=== PATIENT | female | born 1990 | race Caucasian/White ===

== ENCOUNTER 2017-06-22 15:56 | Emergency (ER) | payer MEDICAID ==
[~2017-06-22] VITALS: Ht 165.1 cm; Wt 75.3 kg
--- NOTE | 2017-06-22 16:38 | Emergency Room Report ---
History of Present Illness Time Seen by [id number] Presenting Problem in Triage Pt arrived:Walked Presenting Problem:STATES THAT SHE WAS ON A NEW MED FOR HEADACHES AND IT MADE HER NAUSEOUS. PATIENT WAS GIVEN ZOFRAN AND WAS INEFFECTIVE. STATES THAT SHE IS HAVING UMBILICAL AREA PAIN AND IS UNABLE TO EAT. Onset of symptoms date/time:/ or onset unknown for:MEDICAL HX UNKNOWN Treatment Prior to Arrival: MEDICATION PERINATOLOGY PHYSICIAN Provided by:PHYSICIAN Sepsis Risk Assessment: Temp: 98.0 B/P: 131/72 MAP: 91 Pulse: 69 Resp: 18 Recent fever? N Clinical Suspician of Infection? N Mental Status: 1 - Regular (Normal Baseline) Sepsis Risk:Low Sepsis Risk Have you (or family members/close friends) recently traveled outside the [place]? N If Yes, where/when: Have you had exposure to infectious disease within the past month? N TB? Other? Specify: Comment The patient was recently started on Topamax for headaches. She then developed periumbilical discomfort and nausea and vomiting. She vomits after she eats anything. She feels hungry but feels that she cannot eat. She is having normal bowel movements. No fever. No urinary symptoms. She was called in [facility] by her primary care provider 2 days ago but it has not helped. They had offered her Phenergan, but she did not want to feel drowsy. [employer] had previously worked for her during . She called her primary care provider again today but they could not see her until Sunday and she says she cannot wait because she is leaving on vacation Sunday. ALLERGIES Coded Allergies: Mushroom (From MUSHROOMS (FOOD/DRUG)) (06/22/17) Penicillins (06/22/17) mushroom (From MUSHROOMS (FOOD/DRUG)) (06/22/17) Home Medications Reported Medications Ondansetron Hydrochloride (Ondansetron 4MG U/D TABLET (NON-CHEMO USE)) 4 MG PO Q6HP PRN NAUSEA #20 History Medical History General CAD? No Angina: No ND: No Hypertension? No Hyperlipidemia? No CHF? No DVT? No PE? No COPD? No Asthma? No Anemia? No GERD? No Gastric ulcers? No GI Bleed? No Hernia? No Thyroid Problems? No Hypothyroidism? No CVA? No Seizures? No Diabetes? No Renal Insuffiency? No End Stage Renal Disease? No UTI? No Stones? No BPH? No GB Disease: No Nephritic Syndrome? No Asplenia? No Hepatitis? No Sickle Cell Disease? No Arthritis? No Migraines? No Cataracts? No Glaucoma? No MRSA? No HIV? No TB? No Anxiety? No Depression? No Cancer? No More? No Immunization Hx Ped.Immunizations UTD Yes DT/Tetanus Unknown Surgical Hx Previous Surgery?Y [id number] [employer] Hx LMP 1 Week Ago Social History Smoking Hx Smoker: Never Smoker Tobacco: No Are you/the child exposed to second-hand smoke: No Alcohol Alcohol: No Review of Systems All Other Systems Reviewed and Negative Constitutional denies fever Gastrointestinal abdominal pain, denies constipation, denies diarrhea, nausea, vomiting Genitourinary denies: dysuria, frequency. Physical Exam Vital Signs Vital Signs Date Time Temp Pulse Resp B/P Pulse O2 O2 Flow FiO2 Ox Delivery Rate 06/22 1603 98.0 69 18 131/72 100 General Appearance normal appearance, WD/WN Eye Exam - bilateral eye normal exam, bilateral eye PERRL, bilateral eye EOMI Ear, Nose, Throat hearing grossly normal, normal ENT inspection Neck normal inspection, non-tender, supple, full range of motion Respiratory Status Yes: trachea midline, chest symmetrical, non tender chest. No: respiratory distress. Lung Sounds bilateral: normal breath sounds, lungs clear. Cardiovascular normal exam, regular rate/rhythm, no peripheral edema, no gallop, no JVD, no murmur, no rub, normal peripheral pulses Peripheral Pulses Pulses normal Yes Gastrointestinal normal bowel sounds, soft, no organomegaly, tenderness ( periumbilical) Extremities non-tender, normal range of motion, normal inspection Neurologic alert, normal exam, oriented x 3 Mental status normal mood/affect Skin intact, normal color, warm/dry Medical Decision Making LABS/Meds/Orders Pt receiving controlled substance in ED? No Results/Orders Laboratory Tests 06/22/17 1715: Urine Color YELLOW, Urine Appearance TURBID, Urine pH 7.0, Ur Specific [place] 1.020, Urine Protein NEGATIVE, Urine Ketones NEGATIVE, Urine Blood 2+ H, Urine Nitrate NEGATIVE, Urine Bilirubin NEGATIVE, Urine Urobilinogen 0.2, Ur Leukocyte Esterase 2+ H, Urine RBC 3-5, Urine WBC 5-10, Ur Squamous Epith Cells 20-50, Urine Bacteria 4+, Urine Glucose NEGATIVE 06/22/17 1620: Amylase 40, Lipase 114 06/22/17 1620: Sodium 140, Potassium 4.0, Chloride 105, Carbon Dioxide 26, BUN 13, Creatinine 0.9, Estimated Creat Clear 110, Estimated GFR (MDRD) 74, Glucose 86, Calcium 8.7 , Total Bilirubin 0.2, AST 12 L, ALT 17, Alkaline Phosphatase 80, Total Protein 7.6, Albumin 4.0, Globulin 3.6 H, Albumin/Globulin Ratio 1.1, WBC 9.8, RBC 4.54 , Hgb 14.1, Hct 42.5, MCV 93.6, RDW 12.0, Plt Count 308, MPV 8.6, Gran % 58.1, Gran # 5.7, Lymphocytes % 27.8, Monocytes % 3.6, Eosinophils % 10.1, Basophils % 0.4, Lymphocytes # 2.7, Monocytes # 0.4, Eosinophils # 1.0 H, Basophils # 0.0, PUBS MCHC 33.1, MCH 31.0 Current Medication Orders Sig/Kelli Start time Last Medication Dose Route Stop Time Status Admin Famotidine 0 .STK-MED ONE 06/22 165 DC IV Famotidine 20 MG ONCE ONE 06/22 1645 DC 06/22 IV 06/22 164 1658 Sodium Chloride 10 ML PRN PRN 06/22 1630 AC IV 06/23 1627 Orders Procedure Date/time Status DIET-NOTHING BY MOUTH 06/[address] ABD & PELVIS W/O CONTRAST 06/22 1801 Active CULTURE, URINE 06/[address] ABD/PELVIS REQ 06/22 1646 Active LIPASE 06/22 1645 Complete AMYLASE 06/22 1645 Complete URINALYSIS/COMPLETE 06/22 1639 Complete URINE 06/22 1639 Complete IV SALINE LOCK 06/22 1627 Active CBC WITH AUTO DIFF 06/22 162 Complete CHEM 12 PROFILE 06/22 162 Complete XRAY/CT/US XRAY/CT/US CT abdomen, pelvis Comment CT scan interpreted by ad radiologist. Faxed report received and reviewed: No acute findings Progress - 1907: Discussed results with the patient. She is not having any urinary symptoms. She has a large number of epithelial cells in her urine, likely contamination. She does not want to be put on an antibiotic, wants to await culture results. She does not want Phenergan as it makes her too drowsy. She is agreeable to trying another nausea medication. Departure Departure Disposition DC Home or Self Care(routine) Clinical Impression Primary Impression: Abdominal pain Qualifiers: Abdominal location: periumbilical Qualified Code: R10.33 - Periumbilical pain Secondary Impressions: Nausea and vomiting Qualifiers: Vomiting type: unspecified Vomiting Intractability: non-intractable Qualified Code: R11.2 - Nausea with vomiting, unspecified Condition STABLE Referrals NOE HERNANDEZ (Family) Patient Instructions DI for Abdominal Pain-Adult, DI for Vomiting -- Adult Additional Instructions Additional instructions for ABDOMINAL PAIN: See your physician as soon as possible for further evaluation. Return immediately if worsening abdominal pain, vomiting, shortness of breath, fever, vomiting of blood or abdominal distention. Prescriptions Current Visit Scripts Famotidine (Pepcid) 40 MG PO DAILY #20 TAB Metoclopramide Hcl (Reglan) 5 MG PO TIDP PRN nausea #10 TAB ED Critical Care Critical Care No at 1918
[2017-06-22 16:39] LABS: HEMOGLOBIN 14.1 g/dL (12.2-16.2); LYMPH # 2.7 K/mm3 (0.7-4.5); LYMPH % 27.8 % (10-50.0)
[2017-06-22 17:57] LABS: URINE BILIRUBIN - DIPSTICK NEGATIVE (NEG); URINE BLOOD 2+ (NEG)
[2017-06-22 18:05] LABS: URINE SQUAMOUS CELLS 20-50 #/hpf (0-5)
[2017-06-22 19:28] VITALS: BP 128/70
--- NOTE | 2017-06-23 11:33 | RADIOLOGY REPORT PS360 ---
CT ABD PELVIS W/O CONTRAST COMPARISON: None HISTORY: Abdominal pain nausea and vomiting TECHNIQUE: Multiple axial scans obtained from the hemidiaphragms the pelvic floor and were performed without IV or oral contrast. Sagittal and coronal reformats were evaluated as well. FINDINGS: The lower lung braun are clear. The liver spleen stomach Eckerson gallbladder appear normal. The adrenal glands are normal. The kidneys are normal size and there are no calculi and is no obstructive uropathy. Small bowel appears normal. What appears be the appendix is normal caliber and there are no pericecal inflammatory changes. There is moderate stool in the cecum and ascending colon. The cecum is positioned somewhat low in the right upper pelvis a normal variation. The uterus is normal size and in the midline. Urinary bladder is decompressed. Is no free fluid in the pelvis. IMPRESSION: Essentially unremarkable study no acute abdominal or pelvic pathology identified, I agree with the [facility] report
--- OUTSIDE RECORDS SUMMARY | 2017-06-29 08:17 | External Medical Summary Rpt | CCD ---
Author Author , JUSTYN Organization JUSTYN Address Unknown Phone [email or web address] Care Team Providers Care Bolt Cutter Name Role Phone NAVARRO AMA, Unavailable Unavailable NAVARRO AMA NAVARRO, RASHAAD, Unavailable Unavailable NAVARRO, RASHAAD MOSLEY TEQUILA, MOSLEY TEQUILA Unavailable Unavailable MOSLEY TEQUILA, MOSLEY TEQUILA Unavailable Unavailable GRADY MOSLEY, Unavailable Unavailable GRADY MOSLEY JOHN R, Unavailable Unavailable KATIA STANFORD JEREL, DAVID JEREL Unavailable Unavailable BRIZENDINE, JEAN T, Unavailable Unavailable BRIZENDINE, JEAN T [facility], Unavailable Unavailable [facility] HUY QUINN, HUY QUINN Unavailable Unavailable HUY QUINN, HUY QUINN Unavailable [facility]available [facility] Unavailable Unavailable [facility], Unavailable Unavailable [facility] FALK BRA, FALK BRA Unavailable Unavailable DELA CRUZ ESTHER, DELA CRUZ ESTHER Unavailable Unavailable [facility] Unavailable Unavailable [facility], [facility] LOOFF ELIGIO, LOOFF ELIGIO Unavailable Unavailable LOOFF ELIGIO, LOOFF ELIGIO Unavailable Unavailable KATIA LYNNE LOOFF, Unavailable Unavailable [facility] Unavailable Unavailable LAB [facility], [facility] STEPHIE NELSON Unavailable Unavailable ELIJAH CARD I, Unavailable Unavailable ELIJAH CARD MAHESH G, NAIK, Unavailable Unavailable NATALIE Young [facility], [facility], [facility] Unavailable Unavailable LABS, [facility] PATHOLOGY & CYTOLOGY Unavailable Unavailable LAB, PATHOLOGY & CYTOLOGY LAB PICKMAGALYIMER JR ARLIN, Unavailable Unavailable PICKLESIMER JR ARLIN PICKLESIMER ARLIN, Unavailable Unavailable PICKLESIMER JR ARLIN [facility] Unavailable Unavailable PHARMACY SCHADLER JANES, Unavailable Unavailable SCHADLER MARRERO [facility] # Unavailable Unavailable 2, [facility] # 2 GRADY HASKINS III, Unavailable Unavailable GRADY HASKINS III [facility] Unavailable Unavailable [facility], [facility] Purpose Continuity of Care Document - 01-08-2009 through 2016 Problems Code Diagnosis DOS Provider Status [id number] ENCOUNTER 06-22-2016 [facility], [facility] GENERAL RTN W/O ABNORMAL FIND B9689 OT SPEC 11-29-2015 FAMILY BACTERIAL MEDICINE AGNT CAUSE ASSOC DZ FLEMIN CLASSIFIED ELSW J329 CHRONIC 11-29-2015 FAMILY SINUSITIS MEDICINE UNSPECIFIED ASSOC FLEMIN Z6829 BODY MASS 11-29-2015 FAMILY INDEX BMI MEDICINE 29.0-29.9 ASSOC ADULT FLEMIN Z789 OTHER 11-29-2015 FAMILY SPECIFIED MEDICINE HEALTH ASSOC STATUS FLEMIN J069 ACUTE UPPER 07-05-2015 [facility]INE RESPIRATORY ASSOC INFECTION FLEMIN UNSPECIFIED Z6831 BODY MASS 07-05-2015 FAMILY INDEX BMI MEDICINE 31.0-31.9 ASSOC ADULT FLEMIN V242 ROUTINE 06-12-2013 [facility] FOLLOW-UP 77615 PREV C/S 04-18-2013 LOOFF ELIGIO DELIV DELIV W/WO MENTION ANTPRTM COND V270 OUTCOME OF 04-18-2013 [facility] DELIVERY [facility] LIVEBORN V221 SUPERVISION 04-17-2013 MAGED DEL [place] OF OTHER NORMAL 09224 OT 01-16-2013 HUY BALL KNOWN/SUSPE CTED ABNORMALITY -NEC-APC/C V2389 SUPERVISION 01-16-2013 HUY BALL OF OTHER HIGH-RISK V8909 OT 01-16-2013 HUY BALL SUSPECTED MATERNAL & COND NOT FOUND 28657 UTERINE 10-08-2012 [facility] C[facility] SIZE DATE CENTER DISCREPANCY PLLC ANTPRTM COND/COMPL V222 09-18-2012 [facility], DIAGNOSTIC INCIDENTAL [facility] V283 ENCOUNTER 09-18-2012 [facility] ROUTINE [facility] MALFORMATIO N ULTRASONIC V284 09-18-2012 [facility] SCR [facility] RETARDATION USING US V7242 09-18-2012 [facility] EXAMINATION [facility]OMENS OR TEST HEALTH PLLC POSITIVE RESULT 6260 ABSENCE OF 08-22-2012 [facility] N V4989 OTHER SPEC 08-22-2012 FAMILY CONDITIONS MEDICINE INFLUENCING ASSOC HEALTH FLEMIN STATUS V8523 BODY MASS 08-22-2012 FAMILY INDEX MEDICINE 27.0-27.9 ASSOC ADULT FLEMIN 462 ACUTE 07-08-2012 [facility] PHARYNGITIS MEDICINE ASSOC FLEMIN 4739 UNSPECIFIED 07-08-2012 FAM[facility] SINUSITIS MEDICINE ASSOC FLEMIN V7231 ROUTINE 12-20-2011 [facility] GYNECOLOGIC CENTER AL PLLC EXAMINATION 5110 PLEURISY 09-27-2011 MOSLEY TEQUILA WITHOUT MENTION EFFUS/CURRE NT TB 7831 ABNORMAL 04-07-2010 [facility] WEIGHT GAIN MEDICINE ASSOC FLEMINGSB 5589 OTH&UNSPEC 02-03-2010 [facility] CO NONINFECTIO HOSP US GASTROENTER ITIS&COLITI S 31360 DYSPLASIA 10-21-2009 PATHOLOGY & OF CERVIX CYTOLOGY UNSPECIFIED LAB 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-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 [facility] CERV W/HI CENTER GRADE PLLC SQUAMOUS INTRAEPITH LES V3001 SINGLE 08-12-2009 [facility] DELIV BY V7219 OTHER 08-12-2009 [facility] EXAMINATION MEDICAL GRP OF [facility] 63347 SEVERE 08-11-2009 [facility] PRE-ECLAMPS CENTER IA, PLLC ANTEPARTUM 22641 FAILED 08-11-2009 [facility] MECHANICAL CENTER INDUCTION PLLC OF LABOR DELIVERED 55776 PRIMARY 08-11-2009 [facility]INE ANESTHESIA INERTIA [facility] WITH DELIVERY 22371 SECONDARY 08-11-2009 [facility] UTERINE CENTER INERTIA PLLC WITH DELIVERY 66707 MILD OR 08-10-2009 [facility] UNSPECIFIED [facility] PRE-ECLAMPS IA WITH DELIVERY 45831 OLIGOHYDRAM 08-10-2009 [facility], [facility] DELIVERED HOSP 75177 OLIGOHYDRAM 08-10-2009 [facility], DIAGNOSTICC ANTEPARTUM ENTER 23869 BREECH/MALP 07-27-2009 [facility] RESENT HOLLIS CONVERTED PLLC TO CEPHALIC-AP C/C 52458 EXCESS 07-27-2009 [facility] CENTER GROWTH PLLC AFFECT MGMT MOTH ANTPRTM V220 SUPERVISION 05-27-2009 [facility] OF NORMAL [facility] 05361 UNSPEC 02-23-2009 [facility] HEMORRHAGE CENTER EARLY PLLC ANTEPARTUM Medications Na ND Rx Da Fi Fi Am Da Di Ph RX Ph St me C No te ll ll ou ys ag ar # ys at rm s nt no ma ic us Or Da si cy ia de te s n re d 00 10 10 0 8. 4 TO 71 GR Ac 14 -0 -0 00 TA 82 AY ti 31 5- 5- 0 L 73 ve 47 20 20 CA 3 BR 70 11 11 RE AD 5 LE PH Y AR G MA CY # 2 AZ 00 10 10 0 6. 5 TO 71 GR Ac IT 78 -0 -0 00 TA 82 AY ti HR 11 5- 5- 0 L 73 ve OM 49 20 20 CA 4 BR YC 66 11 11 RE AD IN 8 LE PH Y 25 AR G 0 MA MG CY # TA 2 BL ET MO 52 02 06 12 28 28 TO 71 LO Ac NO 54 -2 -0 .0 TA 38 OF ti NE 40 2- 2- 00 L 26 F ve SS 24 20 20 CA 8 MAKENZIE A 72 11 11 RE HN 28 8 PH TA AR BL MA ET CY # 2 MO 52 02 05 12 28 28 TO 71 LO Ac NO 54 -2 -0 .0 TA 38 OF ti NE 40 2- 3- 00 L 26 F ve SS 24 20 20 CA 8 MAKENZIE A 72 11 11 RE HN 28 8 PH TA AR BL MA ET CY # 2 MO 52 02 04 12 28 28 TO 71 LO Ac NO 54 -2 -0 .0 TA 38 OF ti NE 40 2- 4- 00 L 26 F ve SS 24 20 20 CA 8 MAKENZIE A 72 11 11 RE HN 28 8 PH TA AR BL MA ET CY # 2 MO 52 02 03 12 28 28 TO 71 LO Ac NO 54 -2 -0 .0 TA 38 OF ti NE 40 2- 4- 00 L 26 F ve SS 24 20 20 CA 8 MAKENZIE A 72 11 11 RE HN 28 8 PH TA AR BL MA ET CY # 2 MO 52 02 02 0 28 28 TO 71 LO Ac NO 54 -0 -0 .0 TA 31 OF ti NE 40 3- 3- 00 L 55 F ve SS 24 20 20 CA 2 MAKENZIE A 72 11 11 RE HN 28 8 PH TA AR BL MA ET CY # 2 MO 52 01 01 11 28 28 TO 70 LO Ac NO 54 -1 -0 .0 TA 63 OF ti NE 40 9- 3- 00 L 31 F ve SS 24 20 20 CA 7 MAKENZIE A 72 10 11 RE HN 28 8 PH TA AR BL MA ET CY # 2 MO 52 01 12 11 28 28 TO 70 LO Ac NO 54 -1 -0 .0 TA 63 OF ti NE 40 9- 6- 00 L 31 F ve SS 24 20 20 CA 7 MAKENZIE A 72 10 10 RE HN 28 8 PH TA AR BL MA ET CY # 2 MO 52 01 11 11 28 28 TO 70 LO Ac NO 54 -1 -0 .0 TA 63 OF ti NE 40 9- 4- 00 L 31 F ve SS 24 20 20 CA 7 MAKENZIE A 72 10 10 RE HN 28 8 PH TA AR BL MA ET CY # 2 MO 52 01 09 11 28 28 TO 70 LO Ac NO 54 -1 -2 .0 TA 63 OF ti NE 40 9- 9- 00 L 31 F ve SS 24 20 20 CA 7 MAKENZIE A 72 10 10 RE HN 28 8 PH TA AR BL MA ET CY # 2 MO 52 01 09 11 28 28 TO 70 LO Ac NO 54 -1 -0 .0 TA 63 OF ti NE 40 9- 1- 00 L 31 F ve SS 24 20 20 CA 7 MAKENZIE A 72 10 10 RE HN 28 8 PH TA AR BL MA ET CY # 2 MO 52 01 08 11 28 28 TO 70 LO Ac NO 54 -1 -0 .0 TA 63 OF ti NE 40 9- 2- 00 L 31 F ve SS 24 20 20 CA 7 MAKENZIE A 72 10 10 RE HN 28 8 PH TA AR BL MA ET CY # 2 MO 52 01 07 11 28 28 TO 70 LO Ac NO 54 -1 -0 .0 TA 63 OF ti NE 40 9- 5- 00 L 31 F ve SS 24 20 20 CA 7 MAKENZIE A 72 10 10 RE HN 28 8 PH TA AR BL MA ET CY # 2 MO 52 01 06 11 28 28 TO 70 LO Ac NO 54 -1 -0 .0 TA 63 OF ti NE 40 9- 7- 00 L 31 F ve SS 24 20 20 CA 7 MAKENZIE A 72 10 10 RE HN 28 8 PH TA AR BL MA ET CY # 2 MO 52 01 05 11 28 28 TO 70 LO Ac NO 54 -1 -0 .0 TA 63 OF ti NE 40 9- 1- 00 L 31 F ve SS 24 20 20 CA 7 MAKENZIE A 72 10 10 RE HN 28 8 PH TA AR BL MA ET CY # 2 AL 00 04 04 0 10 25 TO 70 BA Ac CO 78 -0 -0 0. TA 77 CO ti AZ 11 5- 5- 00 L 19 N ve OL 06 20 20 0 CA 8 WI AM 11 10 10 RE LL 0 IA 0. PH M 25 AR G MA MG CY # TA 2 BL ET MO 52 01 04 11 28 28 TO 70 LO Ac NO 54 -1 -0 .0 TA 63 OF ti NE 40 9- 2- 00 L 31 F ve SS 24 20 20 CA 7 MAKENZIE A 72 10 10 RE HN 28 8 PH TA AR BL MA ET CY # 2 RA 65 03 03 4 72 30 TO 70 CO Ac NI 16 -2 -2 .0 TA 74 LE ti TI 20 2- 2- 00 L 84 MA ve DI 66 20 20 CA 1 N NE 49 10 10 RE GA 0 RY 15 PH M AR MG MA /M CY L # SY 2 RU P CE 68 03 03 0 60 10 TO 70 KE Ac FD 18 -1 -1 .0 TA 74 ET ti IN 00 9- 9- 00 L 27 ON ve IR 72 20 20 CA 3 32 10 10 RE CA 25 0 SE 0 PH Y MG AR R /5 MA CY ML # 2 HERNANDEZ SP MO 52 01 [address] 70 LO Ac NO 54 -1 -2 .0 AZ 63 OF ti NE 40 9- 8- 00 A 31 F ve SS 24 20 20 PH 7 MAKENZIE A 72 10 10 AR HN 28 8 MA CY TA BL ET CE 68 11 [address] 70 LO Ac PH 18 -2 -1 .0 AZ 54 OF ti AL 00 4- 7- 00 A 05 F ve EX 12 20 20 PH 2 MAKENZIE IN 20 09 09 AR HN 2 MA 50 CY 0 MG CA PS UL E RA 65 12 [address] 70 CO Ac NI 16 -0 -1 .0 AZ 54 LE ti TI 20 1- 7- 00 A 36 MA ve DI 66 20 20 PH 3 N NE 49 09 09 AR GA 0 MA RY 15 CY M MG /M L SY RU P IB 55 11 [address] 70 Ac UP 11 -2 -1 .0 AZ 54 HM ti RO 10 8- 7- 00 A 05 UN ve FE 68 20 20 PH 1 N 30 09 09 AR JU 60 5 MA LI 0 CY E MG TA BL ET OX 00 11 [address] 70 LO Ac YC 40 -2 -1 .0 AZ 54 OF ti OD 60 6- 7- 00 A 05 F ve ON 51 20 20 PH 0 MAKENZIE E- 20 09 09 AR HN AC 5 MA ET CY AM IN OP HE N 5- 32 5 AZ 59 [address] 70 AP Ac IT 76 -2 -[address] ti HR 23 2- 8- 0 A 26 EG ve OM 06 20 20 PH 7 AT YC 00 09 09 AR E IN 1 MA AM CY AN 25 DA 0 MG TA BL ET Results Labs Lab Lab Date Result Refere Interp Status Commen Order Detail nces retati t Range on Urinalysis dipstick W Reflex Microscopic panel in Urine (06-22-2017 17:15) Bacteri 4+ O complet a 017 ed [Presen 17:15 ce] in Urine sedimen t by Light microsc opy Erythro 3-5 0 complet cytes 017 ed [Presen 17:15 ce] in Urine sedimen t by Light microsc opy Epithel 20-50 0#/hp complet ial 017 f - ed cells.s 17:15 5#/hp quamous f [Presen ce] in Urine sedimen t by Microsc opy high power field Leukocy 5-10 O complet mynor 017 wbc/hpf ed [#/volu 17:15 me] in Urine Urinalysis dipstick W Reflex Microscopic panel in Urine (06-22-2017 17:15) Appeara TURBID CLEAR complet nce of 017 ed Urine 17:15 Bilirub NEGATIV NEG complet in 017 E ed [Presen 17:15 ce] in Urine by Test strip Erythro 2+ NEG Abnorma complet cytes 017 l ed [Presen 17:15 ce] in Urine Color YELLOW YELLOW complet of 017 ed Urine 17:15 Ketones NEGATIV NEG complet 017 E ed [Presen 17:15 ce] in Urine by Automat ed test strip Mucus 2+ NEG Abnorma complet [Presen 017 l ed ce] in 17:15 Urine sedimen t by Light microsc opy Nitrite NEGATIV NEG complet 017 E ed [Presen 17:15 ce] in Urine by Test strip Urobili 0.2 NEG complet nogen 017 ed [Presen 17:15 ce] in Urine by Test strip HCG SERUM QUAL (08-22-2012 15:57) HCG. complet 012 ed 15:57 medical complet 012 ly ed 15:57 advisab le, the test should be confirm ed by a quantit ative need to complet 012 be ed 15:57 obtaine d and tested. If waiting 48 hours is not diagnos complet 012 is of ed 15:57 pregnan cy. After 48 hours, another specime n january NOTE: A complet 012 serum ed 15:57 test result of Positiv e, <25 mIU/ml is not a definit sindy BETA POSITIV NL: complet HCG (S) 012 E ATIVE NEGATIV ed 15:57 E Choriogonadotropin [Units/volume] in Serum or Plasma (08-22-2012 15:57) Choriog 3270 Units: complet onadotr 012 mIU/ml ed opin 15:57 [Units/ volume] in Serum or Plasma HCG complet 012 levels ed 15:57 with Gestati onal Age* Gestati complet 012 onal ed 15:57 Age hCG mIU/mL 0.2-1 complet 012 week ed 15:57 5-50 1-2 complet 012 weeks ed 15:57 50-500 2-3 complet 012 weeks ed 15:57 100-5,0 00 3-4 complet 012 weeks ed 15:57 500-10, 000 4-5 complet 012 weeks ed 15:57 1,000-5 0,000 5-6 complet 012 weeks ed 15:57 10,000- 100,000 6-8 complet 012 weeks ed 15:57 15,000- 200,000 2-3 complet 012 months ed 15:57 10,000- 100,000 *Sasha complet 012 [place], ed 15:57 Arnulfo LIGHT, [facility] Director ry Theory, complet 012 ed 15:57 Analysi s, and Correla tion, Philade complet 012 lphia, ed 15:57 DAMARI Rucker 3rd ed. 1996;81 6-817 Choriogonadotropin.beta subunit ( test) [Presence] in Serum or Plasma (08-22-2012 15:57) BETA POSITIV NL: complet HCG (S) 012 E NEGATIV ed 15:57 E NOTE: A complet 012 serum ed 15:57 test result of Positiv e, <25 mIU/ml is not a definit sindy diagnos complet 012 is of ed 15:57 pregnan cy. After 48 hours, another specime n may need to complet 012 be ed 15:57 obtaine d and tested. If waiting 48 hours is not medical complet 012 ly ed 15:57 advisab le, the test should be confirm ed by a quantit ative HCG. complet 012 ed 15:57 Procedures Procedure DOS Code Location Performer Comment CYTP C/V 72996 [facility], PICKLESIM AUTO THIN 6 LLC ER JR ARLIN LYR PREPJ SCR MNL RESCR PHYS INJECTION J1100 FAMILY NAVARRO 6 MEDICINE AMA DEXAMETHO ASSOC SONE FLEMIN SODIUM PHOSPHATE 1 MG INJECTION J2010 FAMILY MOSLEY TEQUILA 5 MEDICINE LINCOMYCI ASSOC N HCL UP FLEMIN TO 300 MG INJECTION J3301 FAMILY MOSLEY TEQUILA 5 MEDICINE TRIAMCINO ASSOC LONE FLEMIN ACETONIDE NOS 10 MG CYTP C/V 47860 PICKLESIM PICKLESIM AUTO THIN 3 ER JR ARLIN ER JR ARLIN LYR PREPJ SCR MNL RESCR PHYS ANESTHESI 00137 JOSE DE JESUS BRIONES ESTHER A 3 DELIVERY ONLY 35306 LOOFF ELIGIO LOOFF ELIGIO DELIVERY 3 ATTEMPTED LOW 741 [facility] CERVICAL 3 [facility] SECTION IADNA 75865 MEDICAL MEDICAL STREPTOCO 3 DIAGNOSTI DIAGNOSTI CCUS C LAB LLC C LAB LLC GROUP [place] T[place] 58206 HUY BALL UTERUS 3 AFTER 1ST TRIMEST / GESTATION [place] PREG 60970 HUY SON QUINN UTERUS 3 REAL TIME W/IMAGE DCMTN TRANSVAG GLUCOSE 04498 [facility] POST 3 [facility] GLUCOSE [facility] HOSP DOSE COLLECTIO 48697 [facility] N VENOUS 3 [facility] [place] [address] WOMENKamini HANSEN 3 CARE UTERUS CENTER LIMITED PLLC 1/> [place] PREG 48744 LUDIN LYNNE ELIGIO UTERUS 3 CARE REAL TIME CENTER W/IMAGE PLLC DCMTN TRANSVAG US PREG 37489 ARMANI KENT UTERUS 3 WOMENS MARRERO REAL TIME HEALTH W/IMAGE PLLC DCMTN TRANSVAG IADNA 08047 MEDICAL MEDICAL CHLAMYDIA 3 DIAGNOSTI DIAGNOSTI C LAB LLC C LAB LLC TRACHOMAT IS AMPLIFIED PROBE TQ IADNA 91953 MEDICAL MEDICAL NEISSERIA 3 DIAGNOSTI DIAGNOSTI C LAB LLC C LAB LLC GONORRHOE AE AMPLIFIED PROBE TQ GONADOTRO 13923 ROBBINSMONI ROBBINS PIN 2 CO [facility] QUANTITAT SINDY GONADOTRO 75669 [facility] PIN 2 [facility] QUALITATI VE CYTP C/V 01176 PATHOLOGY PICKLESIM AUTO THIN 2 & ER JR ARLIN LYR CYTOLOGY PREPJ SCR LAB MNL RESCR PHYS CYTP C/V 23457 PATHOLOGY PATHOLOGY AUTO THIN 1 & & LYR CYTOLOGY CYTOLOGY PREPJ SCR LAB LAB MNL RESCR PHYS CYTP 67659 PATHOLOGY PATHOLOGY CERVICAL/ 1 & & VAGINAL CYTOLOGY CYTOLOGY REQ LAB LAB INTERP PHYSICIAN COLLECTIO 97669 ROBBINS ROBBINS N VENOUS 0 [facility] VENIP[facility]CT URE THERAPEUT 88842 [facility] IC 0 [facility] TIC/DX INJECTION SUBQ/IM INJECTION J0500 [facility] 0 [facility] DIC[facility]CL[facility]MARY [facility] NE HCL UP TO 20 MG BLOOD 57085 [facility] COUNT 0 [facility] AUTO&AUTO DIFRNTL WBC INJECTION J2405 [facility] 0 [facility] HCL PER 1 MG PRESCRIPT J8499 [facility] ION DRUG 0 [facility] NONCHEMOT HERAPEUTI C NOS COLPOSCOP 15019 WOMENKamini LYNNE, Y CERVIX 0 CARE [facility] CERVIX CENTER & [place] [address] PATHOLOGY PATHOLOGY SURG 0 & & PATHOLOGY CYTOLOGY CYTOLOGY LAB LAB GROSS&JEREL ROSCOPIC EXAM AUDITORY 35181 PEDIATRIX KURT, EVOKED 9 MEDICAL NATALIE G POTENTIAL [facility]P [facility] [place] S LIMITED PSC OTHER 7309 [facility] ARTIFICIA 9 [facility] L RUPTURE HOSP HOSP OF [facility] LOW 741 [facility] CERVICAL 9 [facility]OSP SECTION 16213 WOMENKamini LYNNE, DELIVERY 9 [facility] W/POSTPAR PLLC JAELYN CARE ANES 15676 [facility] JOZEF CESARN 9 ANESTHESI III, DLVR FLWG A PSC GRADY NEURAXIAL LABOR ANALG/ANE S NEURAXIAL 19735 [facility] WHITE LABOR 9 ANESTHESI III, ANALG/ANE A PSC GRADY S PLND VAGINAL DELIVERY 05816 SE REY 9 [facility] PROFILE PLLC W/O NON-STRES S TESTING MEDICAL 734 [facility] INDUCTION 9 [facility] [place] 124[address] [place], UTERUS 9 [facility] W/DETAIL DIAGNOSTI CCENTER LIS 1ST GESTATION 55253 SE REY 9 [facility] PROFILE PLLC W/O NON-STRES S TESTING IADNA 68802 MEDICAL MEDICAL STREPTOCO 9 DIAGNOSTI DIAGNOSTI CCUS C LAB LLC C LAB [place] [address] LUDIN [facility] 9 [facility] PROFILE PLLC W/O NON-STRES S TESTING IAADIADOO 71667 FAMILY NAVARRO 9 MEDICINE , RASHAAD INFL[facility]ENZA [facility] COL[facility] 36291 [facility] N VENOUS 9 [facility] BLOOD HOSP HOSP VENIPUNCT URE GLUCOSE 15055 [facility] POST 9 [facility] [address] WOMENKamini CARD, 9 CARE ELIJAH I UTERUS CENTER LIMITED PLLC 1/> FETUSES 3D 84239 LUDIN CARD, RENDERING 9 CARE [facility] CENTER W/INTERP& PLLC [place] 44932 LUDIN CARD, UTERUS 9 CARE ELIJAH I AFTER 1ST CENTER [place]IMEST [place] 62506 WOMENS LOOFF, UTERUS 9 CARE [facility] REAL TIME CENTER W/IMAGE PLLC DCMTN TRANSVAG COLLECTIO 59285 ROSENDO ROBBINS N VENOUS 9 CO [facility] VENIPUNCT URE GONADOTRO 80338 ROS[facility] ROBBINS PIN 9 CO [facility] QUALITATI VE Encounters Encounter Start End Date Code Location Performer Type Date PERIODIC 75772 [facility] LOOFF ELIGIO PREVENTIV 6 6 HEALTH E MED EST MEDICAL PATIENT GROUP 18-39 YRS OFFICE 52894 FAMILY NAVARRO OUTPATIEN 6 6 MEDICINE AMA T VISIT ASSOC 25 FLEMIN MINUTES OFFICE 55582 FAMILY MELANY TEQUILA OUTPATIEN 5 5 MEDICINE T VISIT ASSOC 15 FLEMIN MINUTES [facility] 3 3 [facility] INPATIENT HOSP OFFICE 61280 LOOFF ELIGIO LOOFF ELIGIO OUTPATIEN 3 3 T VISIT 15 MINUTES OFFICE 07215 LOOFF ELIGIO LOOFF ELIGIO OUTPATIEN 3 3 T VISIT 15 MINUTES OFFICE 31707 LOOFF ELIGIO LOOFF ELIGIO OUTPATIEN 3 3 T VISIT 15 MINUTES OFFICE 64916 LOOFF ELIGIO LOOFF ELIGIO OUTPATIEN 3 3 T VISIT 15 MINUTES OFFICE 69356 WOMEN'S LOOFF ELIGIO OUTPATIEN 3 3 CARE T VISIT CENTER 15 PLLC MINUTES OFFICE 47172 WOMEN'S LOOFF ELIGIO OUTPATIEN 3 3 CARE T VISIT CENTER 15 PLLC MINUTES OFFICE 63055 WOMENS LOOFF ELIGIO OUTPATIEN 3 3 CARE T VISIT CENTER 15 PLLC MINUTES OFFICE 73334 WOMENS LOOFF ELIGIO OUTPATIEN 3 3 CARE T VISIT CENTER 15 PLLC MINUTES OFFICE 09756 WOMENS LOOFF ELIGIO OUTPATIEN 3 3 CARE T VISIT CENTER 15 PLLC MINUTES OFFICE 22071 WOMENKamini [facility] OUTPATIEN 3 3 CARE T VISIT CENTER 15 PLLC MINUTES HOSPITAL [facility]TRAL - 3 3 [facility] OUTPATIEN HOSP T OFFICE 60100 WOMENKamini [facility] OUTPATIEN 3 3 CARE T VISIT CENTER 15 PLLC MINUTES OFFICE 37062 WOMENKamini [facility] OUTPATIEN 3 3 CARE T VISIT CENTER 15 PLLC MINUTES OFFICE 51636 WOMENKamini [facility] OUTPATIEN 3 3 CARE T VISIT CENTER 25 PLLC MINUTES OFFICE 64676 ARMANI KENT OUTPATIEN 3 3 WOMENKamini Gonzalez NEW 30 HEALTH MINUTES PLLC OFFICE 36717 FAMILY MOSLEY TEQUILA OUTPATIEN 2 2 MEDICINE T VISIT ASSOC [facility] 2 [facility] T OFFICE 76156 FAMILY HERNANDEZ JEREL OUTPATIEN 2 2 MEDICINE T VISIT ASSOC 25 FLEMIN MINUTES PERIODIC 68802 LUDIN LYNNE ELIGIO PREVENTIV 2 2 CARE E MED EST CENTER PATIENT [facility] 18-39 YRS OFFICE 12285 MOSLEY TEQUILA MOSLEY TEQUILA OUTPATIEN 2 2 T VISIT 25 MINUTES OFFICE 78071 FAMILY FALK BRA OUTPATIEN 1 1 MEDICINE T VISIT ASSOC 15 FLEMIN MINUTES PERIODIC 60317 LUDIN LYNNE ELIGIO PREVENTIV 1 1 CARE E MED EST CENTER PATIENT [facility] 18-39 YRS OFFICE 63751 FAMILY MOSLEY, OUTPATIEN 0 0 MEDICINE GRADY G T VISIT ASSOC 15 [facility] ROBBINS - 0 0 CO [facility] T EMERGENCY 69162 ROSENDO BRIZENDIN 0 0 CO HOSP E, JEAN T DEPARTMEN T VISIT MODERATE SEVERITY [facility]OSPITAL [facility] - 9 9 [facility] INPATIENT [facility]OSP OFFICE 56501 WOMENS LOOFF, OUTPATIEN 9 9 CARE KATIA T VISIT CENTER 15 PLLC MINUTES OFFICE 14943 WOMENS LOOFF, OUTPATIEN 9 9 CARE [facility] T VISIT CENTER 15 PLLC MINUTES OFFICE 03598 WOMENS LOOFF, OUTPATIEN 9 9 CARE [facility] T VISIT CENTER 15 PLLC MINUTES OFFICE 03947 FAMILY NAVARRO OUTPATIEN 9 9 MEDICINE , RASHAAD T VISIT ASSOC 15 [facility]TRAL - 9 9 [facility] 71483 WOMENS LOOFF, OUTPATIEN 9 9 CARE [facility] T VISIT CENTER 15 PLLC MINUTES OFFICE 48535 WOMENS LOOFF, OUTPATIEN 9 9 CARE [facility] T VISIT CENTER 15 PLLC MINUTES OFFICE 03625 WOMENS LOOFF, OUTPATIEN 9 9 CARE [facility] T VISIT CENTER 15 PLLC MINUTES OFFICE 11067 WOMENS LOOFF, OUTPATIEN 9 9 CARE [facility]IA T VISIT CENTER 15 PLL MINUTES [facility] 9 9 [facility]
--- OUTSIDE RECORDS SUMMARY | 2017-06-29 08:17 | External Medical Summary Rpt | CCD ---
Author Author , JUSTYN Organization JUSTYN Address Unknown Phone [email or web address] Care Team Providers Care Stem Crusher Name Role Phone NAVARRO AMA, Unavailable Unavailable NAVARRO AMA NAVARRO, RASHAAD, Unavailable Unavailable NAVARRO, RASHAAD MOSLEY TEQUILA, MOSLEY TEQUILA Unavailable Unavailable MOSLEY TEQUILA, MOSLEY TEQUILA Unavailable Unavailable GRADY MOSLEY, Unavailable Unavailable GRADY MOSLEY JOHN R, Unavailable Unavailable KATIA STANFORD JEREL, DAVID JEREL Unavailable Unavailable BRIZENDINE, JEAN T, Unavailable Unavailable BRIZENDINE, JEAN T [facility], Unavailable Unavailable [facility] HUY QUINN, HUY QUINN Unavailable Unavailable HUY QUINN, HUY QUINN Unavailable Unavailable [facility] Unavailable Unavailable [facility], [facility], Unavailable Unavailable [facility] FALK BRA, FALK BRA Unavailable Unavailable DELA CRUZ ESTHER, DELA CRUZ ESTHER Unavailable Unavailable [facility] Unavailable Unavailable [facility], [facility] LOOFF ELIGIO, LOOFF ELIGIO Unavailable Unavailable LOOFF ELIGIO, LOOFF ELIGIO Unavailable Unavailable KATIA LYNNE LOOFF, Unavailable Unavailable [facility] Unavailable Unavailable LAB [facility], [facility] STEPHIE NELSON Unavailable Unavailable ELIJAH CARD I, Unavailable Unavailable ELIJAH CARD MAHESH G, NAIK, Unavailable Unavailable NATALIE Young [facility], [facility], [facility] Unavailable Unavailable LABS, [facility] PATHOLOGY & CYTOLOGY Unavailable Unavailable LAB, [facility]OLOGY [facility]Y LAB PICKMAGALYIMER JR ARLIN, Unavailable Unavailable PICKLESIMER JR ARLIN PICKLESIMER ARLIN, Unavailable Unavailable [facility]LESIM[facility] JR A[facility] Un[facility] Unavailable [facility] SCHADLER JANES, Unavailable Unavailable SCHADLER MARRERO [facility] # Unavailable Unavailable 2, [facility] # 2 GRADY HASKINS III, Unavailable Unavailable GRADY HASKINS III [facility] Unavailable Unavailable [facility], [facility] Purpose Continuity of Care Document - 01-08-2009 through 2016 Problems Code Diagnosis DOS Provider Status [id number] ENCOUNTER 06-22-2016 [facility] RIGG[facility] UP WORKER EX[facility] GENERAL RTN W/O ABNORMAL FIND [...] ASSOC ADULT FLEMIN V242 ROUTINE 06-12-2013 [facility] FOLLOW-UP 81084 PREV C/S 04-18-2013 LOOFF ELIGIO DELIV DELIV W/WO MENTION ANTPRTM COND V270 OUTCOME OF 04-18-2013 [facility] DELIVERY [facility] LIVE[facility]ORN V221 SUPERVISION 04-17-2013 MAGED [place] OF OTHER NORMAL 77256 OT 01-16-2013 HUY BALL KNOWN/SUSPE CTED ABNORMALITY -NEC-APC/C V2389 SUPERVISION 01-16-2013 HUY BALL OF OTHER HIGH-RISK V8909 OT 01-16-2013 HUY BALL SUSPECTED MATERNAL & COND NOT FOUND 76612 UTERINE 10-08-2012 [facility] CENTER DISCREPANCY PLLC ANTPRTM COND/COMPL V222 09-18-2012 [facility], DIAGNOSTIC INCIDENTAL [facility] V283 ENCOUNTER 09-18-2012 [facility] ROUTINE [facility] MALFORMATIO N ULTRASONIC V284 09-18-2012 [facility] SCR [facility] RETARDATION USING US V7242 09-18-2012 [facility] EXAMINATION [facility] OR TEST HEALTH PLLC POSITIVE RESULT 6260 ABSENCE OF 08-22-2012 [facility] N V4989 OTHER SPEC 08-22-2012 FAMILY CONDITIONS MEDICINE INFLUENCING ASSOC HEALTH FLEMIN STATUS V8523 BODY MASS 08-22-2012 FAMILY INDEX MEDICINE 27.0-27.9 ASSOC ADULT FLEMIN 462 ACUTE 07-08-2012 [facility] PHARYNGITIS [facility] FLEMIN 4739 UNSPECIFIED 07-08-2012 [facility] SINUSITIS MEDICINE [facility] FLEMIN V7231 ROUTINE 12-20-2011 [facility] GYNECOLOGIC CENTER AL PLLC EXAMINATION 5110 PLEURISY 09-27-2011 MOSLEY TEQUILA WITHOUT MENTION EFFUS/CURRE NT TB 7831 ABNORMAL 04-07-2010 [facility] WEIGHT GAIN MEDICINE [facility] FLEMINGSB 5589 OTH&UNSPEC 02-03-2010 [facility] NONINFECTIO HOSP US GASTROENTER ITIS&COLITI S 96514 DYSPLASIA 10-21-2009 PATHOLOGY & OF CERVIX CYTOLOGY UNSPECIFIED LAB 25432 PAP SMER 10-21-2009 [facility] CERV W/HI CENTER GRADE PLLC SQUAMOUS INTRAEPITH LES V3001 SINGLE 08-12-2009 [facility] DELIV BY V7219 OTHER 08-12-2009 [facility] EXAMINATION [facility] 23419 SEVERE 08-11-2009 [facility] PRE-ECLAMPS CENTER IA, PLLC ANTEPARTUM 08594 FAILED 08-11-2009 [facility] MECHANICAL CENTER INDUCTION PLLC OF LABOR DELIVERED 93751 PRIMARY 08-11-2009 [facility] UTERINE ANESTHESIA INERTIA [facility] WITH DELIVERY 87491 SECONDARY 08-11-2009 [facility] UTERINE CENTER INERTIA PLLC WITH DELIVERY 96922 MILD OR 08-10-2009 [facility] UNSPECIFIED [facility] PRE-ECLAMPS IA WITH DELIVERY 99666 OLIGOHYDRAM 08-10-2009 [facility] NIOS, [facility] DELIVERED [facility]OSP 51429 OLIGOHYDRAM 08-10-2009 [facility], DIAGNOSTICC ANTEPARTUM ENTER 87877 BREECH/MALP 07-27-2009 [facility] RESENT [place]ANUTE CONVERTED PLLC TO CEPHALIC-AP C/C 25875 EXCESS 07-27-2009 [facility] CENTER GROWTH PLLC AFFECT MGMT MOTH ANTPRTM V220 SUPERVISION 05-27-2009 [facility] OF NORMAL [facility] 88273 UNSPEC 02-23-2009 [facility] HEMORRHAGE CENTER EARLY PLLC ANTEPARTUM Medications Na [...] ve SS 24 20 20 CA 8 MAKENIZE A 72 11 11 RE HN 28 [...] 0 10 25 TO 70 BA Ac CA 78 -0 -0 0. TA 77 CO [...] LA, ed 15:57 Arnulfo LIGHT, Clinica l Sapphire Stylus Grinder ry Theory, complet 012 ed 15:57 Analysi [...] DOS Code Location Performer Comment CYTP C/V 03605 [facility], PICKLESIM AUTO THIN 6 LLC [...] FLEMIN ACETONIDE NOS 10 MG CYTP C/V 31725 PICKLESIM PICKLESIM AUTO THIN 3 ER JR ARLIN ER JR ARLIN LYR PREPJ SCR MNL RESCR PHYS ANESTHESI 67044 JOSE DE JESUS BRIONES ESTHER A 3 DELIVERY ONLY 00081 LOOFF ELIGIO LOOFF ELIGIO DELIVERY 3 ATTEMPTED LOW 741 [facility] CERVICAL 3 [facility] SECTION IADNA 40461 MEDICAL MEDICAL STREPTOCO 3 DIAGNOSTI DIAGNOSTI CCUS C LAB LLC C LAB LLC GROUP [place] T[place] 99585 HUY BALL UTERUS 3 AFTER 1ST TRIMEST / GESTATION US PREG 57655 HUY SON QUINN UTERUS 3 REAL TIME W/IMAGE DCMTN TRANSVAG GLUCOSE 77407 [facility] POST 3 [facility] GLUCOSE [facility] HOSP DOSE COLLECTIO 85612 [facility] N VENOUS 3 [facility] [place] [address] WOMENKamini HANSEN 3 CARE UTERUS CENTER LIMITED PLLC 1/> FETUSES US PREG 83119 LUDIN LYNNE ELIGIO UTERUS 3 CARE REAL TIME CENTER W/IMAGE PLLC DCMTN TRANSVAG US PREG 68155 ARMANI KENT UTERUS 3 WOMENS MARRERO REAL TIME HEALTH W/IMAGE PLLC DCMTN TRANSVAG IADNA 50919 MEDICAL MEDICAL CHLAMYDIA 3 DIAGNOSTI DIAGNOSTI C LAB LLC C LAB LLC TRACHOMAT IS AMPLIFIED PROBE TQ IADNA 41114 MEDICAL MEDICAL NEISSERIA 3 DIAGNOSTI DIAGNOSTI C LAB LLC C LAB LLC GONORRHOE AE AMPLIFIED PROBE TQ GONADOTRO 38113 ROBBINSMONI ROBBINS PIN 2 CO [facility] QUANTITAT SINDY GONADOTRO 69044 [facility] PIN 2 [facility] QUALITATI VE CYTP C/V 56112 PATHOLOGY PICKLESIM AUTO THIN 2 & ER JR ARLIN LYR CYTOLOGY PREPJ SCR LAB MNL RESCR PHYS CYTP C/V 92753 PATHOLOGY PATHOLOGY AUTO THIN 1 & & LYR CYTOLOGY CYTOLOGY PREPJ SCR LAB LAB MNL RESCR PHYS CYTP 59134 PATHOLOGY PATHOLOGY CERVICAL/ 1 & & VAGINAL CYTOLOGY CYTOLOGY REQ LAB LAB INTERP PHYSICIAN COLLECTIO 58857 ROBBINS ROBBINS N VENOUS 0 [facility] VENIPUNCT URE THERAPEUT 83726 [facility] IC 0 [facility] TIC/DX INJECTION SUBQ/IM INJECTION J0500 [facility] 0 [facility] NE HCL UP TO 20 MG BLOOD 90105 [facility] COUNT 0 CO [facility] STATION AUTO&AUTO DIFRNTL WBC INJECTION J2405 [facility] 0 [facility] PER 1 MG PRESCRIPT J8499 [facility] ION DRUG 0 [facility] NONCHEMOT HERAPEUTI C NOS COLPOSCOP 38744 WOMENKamini LYNNE, Y CERVIX 0 [facility] CERVIX CENTER & [place] [address] PATHOLOGY PATHOLOGY SURG 0 & & PATHOLOGY CYTOLOGY CYTOLOGY LAB LAB GROSS&JEREL ROSCOPIC EXAM AUDITORY 37447 PEDIATRIX KURT, EVOKED 9 MEDICAL NATALIE G POTENTIAL [facility] [place] S LIMITED PSC OTHER 7309 [facility] ARTIFICIA 9 [facility] L RUPTURE [facility] LOW 741 [facility] CERVICAL 9 [facility] SECTION 79711 WOMENKamini LYNNE, DELIVERY 9 [facility] W/POSTPAR PLLC JAELYN CARE ANES 61017 [facility] JOZEF CESARN 9 ANESTHESI III, DLVR FLWG A PSC GRADY NEURAXIAL LABOR ANALG/ANE S NEURAXIAL 51704 [facility] WHITE LABOR 9 ANESTHESI III, ANALG/ANE A PSC GRADY S PLND VAGINAL DELIVERY 34672 SE REY 9 [facility] PROFILE PLLC W/O NON-STRES S TESTING MEDICAL 734 [facility] INDUCTION 9 [facility] [place] PREG 37137 [place], UTERUS 9 [facility] W/DETAIL DIAGNOSTI CCENTER LIS 1ST GESTATION 06597 SE REY 9 [facility] PROFILE PLLC W/O NON-STRES S TESTING IADNA 53313 MEDICAL MEDICAL STREPTOCO 9 DIAGNOSTI DIAGNOSTI CCUS C LAB LLC C LAB [place] [address] LUDIN LYNNE [facility] 9 [facility] PROFILE PLLC W/O NON-STRES S TESTING IAADIADOO 57576 FAMILY NAVARRO 9 MEDICINE , RASHAAD INFLUENZA ASSOC [facility] COLLECTIO 03384 [facility] N VENOUS 9 [facility] BLOOD [facility] HOSP VENIPUNCT URE GLUCOSE 63910 [facility] POST 9 [facility] [place] [address] WOMENKamini CARD, 9 CARE ELIJAH I UTERUS CENTER LIMITED PLLC 1/> FETUSES 3D 53641 LUDIN CARD, RENDERING 9 CARE [facility] CENTER W/INTERP& PLLC [place] [address] LUDIN CARD, UTERUS 9 CARE ELIJAH I AFTER 1ST CENTER [place] [address] WOMENS LOOFF, UTERUS 9 CARE [facility] REAL TIME CENTER W/IMAGE PLLC DCMTN TRANSVAG COLLECTIO 99589 [facility] ROBBINS N VENOUS 9 CO [facility] VENIPUNCT URE GONADOTRO 92331 [facility] ROBBINS PIN 9 CO [facility] QUALITATI VE Encounters Encounter Start End Date Code Location Performer Type Date PERIODIC 36863 [facility] LOOFF ELIGIO PREVENTIV 6 6 HEALTH E MED EST MEDICAL PATIENT GROUP 18-39 YRS OFFICE 75607 FAMILY NAVARRO OUTPATIEN 6 6 MEDICINE AMA T VISIT ASSOC 25 FLEMIN MINUTES OFFICE 48879 FAMILY MELANY TEQUILA OUTPATIEN 5 5 MEDICINE T VISIT ASSOC 15 FLEMIN MINUTES [facility] 3 3 [facility]IENT [facility] OFFICE 14110 LOOFF ELIGIO LOOFF ELIGIO OUTPATIEN 3 3 T VISIT 15 MINUTES OFFICE 92163 LOOFF ELIGIO LOOFF ELIGIO OUTPATIEN 3 3 T VISIT 15 MINUTES OFFICE 75301 LOOFF ELIGIO LOOFF ELIGIO OUTPATIEN 3 3 T VISIT 15 MINUTES OFFICE 36571 LOOFF ELIGIO LOOFF ELIGIO OUTPATIEN 3 3 T VISIT 15 MINUTES OFFICE 38196 WOMEN'S LOOFF ELIGIO OUTPATIEN 3 3 CARE T VISIT CENTER 15 PLLC MINUTES OFFICE 61071 WOMEN'S LOOFF ELIGIO OUTPATIEN 3 3 CARE T VISIT CENTER 15 PLLC MINUTES OFFICE 90383 WOMENS LOOFF ELIGIO OUTPATIEN 3 3 CARE T VISIT CENTER 15 PLLC MINUTES OFFICE 18411 WOMENS LOOFF ELIGIO OUTPATIEN 3 3 CARE T VISIT CENTER 15 PLLC MINUTES OFFICE 23726 WOMENS LOOFF ELIGIO OUTPATIEN 3 3 CARE T VISIT CENTER 15 PLLC MINUTES OFFICE 45479 WOMENKamini [facility] OUTPATIEN 3 3 CARE T VISIT CENTER 15 PLLC MINUTES HOSPITAL [facility] - 3 3 [facility] OUTPATIEN HOSP T OFFICE 36088 WOMENKamini [facility] OUTPATIEN 3 3 CARE T VISIT CENTER 15 PLLC MINUTES OFFICE 34691 WOMENKamini [facility] OUTPATIEN 3 3 CARE T VISIT CENTER 15 PLLC MINUTES OFFICE 04146 WOMENKamini [facility] OUTPATIEN 3 3 CARE T VISIT CENTER 25 PLLC MINUTES OFFICE 26457 ARMANI KENT OUTPATIEN 3 3 WOMENKamini Gonzalez NEW 30 HEALTH MINUTES PLLC OFFICE 71197 FAMILY MOLSEY TEQUILA OUTPATIEN 2 2 MEDICINE T VISIT ASSOC [facility] 2 [facility] T OFFICE 88229 FAMILY HERNANDEZ JEREL OUTPATIEN 2 2 MEDICINE T VISIT ASSOC 25 FLEMIN MINUTES PERIODIC 09851 LUDIN LYNNE ELIGIO PREVENTIV 2 2 CARE E MED EST CENTER PATIENT [facility] 18-39 YRS OFFICE 17136 MOSLEY TEQUILA MOSLEY TEQUILA OUTPATIEN 2 2 T VISIT 25 MINUTES OFFICE 79396 FAMILY FALK BRA OUTPATIEN 1 1 MEDICINE T VISIT ASSOC 15 FLEMIN MINUTES PERIODIC 22423 LUDIN LYNNE ELIGIO PREVENTIV 1 1 CARE E MED EST CENTER PATIENT [facility] 18-39 YRS OFFICE 76866 FAMILY MOSLEY, OUTPATIEN 0 0 MEDICINE GRADY G T VISIT ASSOC 15 [facility] ROBBINS - 0 0 CO [facility] T EMERGENCY 33197 [facility] BRIZENDIN 0 0 CO HOSP E, JEAN T DEPARTMEN T VISIT MODERATE SEVERITY [facility]OSPITAL [facility] - 9 9 [facility] IN[facility]IENT [facility] OFFICE 74225 WOMENS LOOFF, OUTPATIEN 9 9 CARE [facility] T VISIT CENTER 15 PLLC MINUTES OFFICE 52869 WOMENS LOOFF, OUTPATIEN 9 9 CARE [facility] T VISIT CENTER 15 PLLC MINUTES OFFICE 60807 WOMENS LOOFF, OUTPATIEN 9 9 CARE [facility] T VISIT CENTER 15 PLLC MINUTES OFFICE 05658 FAMILY NAVARRO OUTPATIEN 9 9 MEDICINE , RASHAAD T VISIT ASSOC 15 [facility] - 9 [facility] 25317 WOMENS LOOFF, OUTPATIEN 9 9 CARE [facility] T VISIT CENTER 15 PLLC MINUTES OFFICE 99822 WOMENS LOOFF, OUTPATIEN 9 9 [facility]ARE [facility] T VISIT CENTER 15 PLLC MINUTES OFFICE 31683 WOMENS LOOFF, OUTPATIEN 9 9 [facility]ARE [facility] T [facility]IT CENTER 15 PLLC MINUTES OFFICE 43128 WOMENS LOOFF, OUTPATIEN 9 9 CARE [facility] T VISIT CENTER 15 PLL MINUTES [facility] 9 9 [facility]
--- OUTSIDE RECORDS SUMMARY | 2017-06-29 08:19 | External Medical Summary Rpt | CCD ---
Author Author , JUSTYN WOODYERMELINDA Address Unknown Phone [email or web address] Care Team Providers Care Pre Billing Specialist Name Role Phone NAVARRO AMA, Unavailable Unavailable NAVARRO AMA NAVARRO, RASHAAD, Unavailable Unavailable NAVARRO, RASHAAD MOSLEY TEQUILA, MOSLEY TEQUILA Unavailable Unavailable MOSLEY TEQUILA, MOSLEY TEQUILA Unavailable Unavailable GRADY MOSLEY G, Unavailable Unavailable GRADY MOSLEY JOHN R, Unavailable Unavailable KATIA STANFORD JEREL, DAVID JEREL Unavailable Unavailable BRIZENDINE, JEAN T, Unavailable Unavailable BRIZENDINE, JEAN T [facility], Unavailable Unavailable [facility] HUY QUINN, HUY QUINN Unavailable Unavailable HUY BHAT QUINN Unavailable Unavailable [facility] Unavailable Unavailable [facility], [facility], Unavailable Unavailable [facility] FALK BRA, FALK BRA Unavailable Unavailable DELA CRUZ ESTHER, DELA CRUZ ESTHER Unavailable Unavailable [facility] Unavailable Unavailable [facility], [facility] LOOFF ELIGIO, LOOFF ELIGIO Unavailable Unavailable LOOFF ELIGIO, LOOFF ELIGIO Unavailable Unavailable KATIA LYNNE LOOFF, Unavailable Unavailable [facility] Unavailable Unavailable [facility] STEPHIE NELSON GLE Unavailable Unavailable ELIJAH CARD I, Unavailable Unavailable ELIJAH CARD MAHESH G, NAIK, Unavailable Unavailable NATALIE Young [facility] Unavailable Unavailable [facility], [facility] Unavailable Unavailable LAB, [facility] JR ARLIN, Unavailable Unavailable [facility] JR ARLIN, Unavailable Unavailable [facility] Unavailable [facility], Unavailable Unavailable [facility] # Unavailable Unavailable 2, [facility] # 2 GRADY HASKINS III, Unavailable Unavailable GRADY HASKINS III [facility] Unavailable Unavailable [facility] Purpose Continuity of Care Document - 01-08-2009 through 2016 Problems Code Diagnosis DOS Provider Status [id number] ENCOUNTER 06-22-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 [facility] GENERAL RTN W/O ABNORMAL FIND [...] ASSOC ADULT FLEMIN V242 ROUTINE 06-12-2013 [facility] FOLLOW-UP 81752 PREV C/S 04-18-2013 LOOFF ELIGIO DELIV DELIV W/WO MENTION ANTPRTM COND V270 OUTCOME OF 04-18-2013 [facility] DELIVERY EP[facility]LE [facility]OS[facility] V221 SUPERVISION 04-17-2013 ANILOFF ELIGIO OF OTHER NORMAL 52285 OT 01-16-2013 HUY BALL KNOWN/SUSPE CTED ABNORMALITY -NEC-APC/C V2389 SUPERVISION 01-16-2013 HUY BALL OF OTHER HIGH-RISK V8909 OT 01-16-2013 HUY BALL SUSPECTED MATERNAL & COND NOT FOUND 67149 UTERINE 10-08-2012 [facility] C[facility] DISCREPANCY PLLC ANTPRTM COND/COMPL V222 09-18-2012 [facility], DIAGNOSTIC INCIDENTAL [facility] V283 ENCOUNTER 09-18-2012 [place] ROUTINE [facility] MALFORMATIO N ULTRASONIC V284 09-18-2012 [place] SCR [facility] RETARDATION USING US V7242 09-18-2012 [place] EXAMINATION WOMENS OR TEST [facility] POSITIVE RESULT 6260 ABSENCE OF 08-22-2012 [facility] N V4989 OTHER SPEC 08-22-2012 FAMILY CONDITIONS MEDICINE INFLUENCING ASSOC HEALTH FLEMIN STATUS V8523 BODY MASS 08-22-2012 FAM[facility] INDEX MEDICINE 27.0-27.9 ASSOC ADULT FLEMIN 462 ACUTE 07-08-2012 [facility] PHARYNGITIS [facility] FLEMIN 4739 UNSPECIFIED 07-08-2012 [facility] SINUSITIS [facility]INE [facility] FLEMIN V7231 ROUTINE 12-20-2011 [facility] GYNECOLOGIC CENTER AL PLLC EXAMINATION 5110 PLEURISY 09-27-2011 MOSLEY TEQUILA WITHOUT MENTION EFFUS/CURRE NT TB 7831 ABNORMAL 04-07-2010 [facility]IN [facility] MATTB 5589 OTH&UNSPEC 02-03-2010 [facility] WILEY NONINFECTIO HOSP US GASTROENTER ITIS&COLITI S 29696 DYSPLASIA 10-21-2009 PATHOLOGY & OF CERVIX CYTOLOGY UNSPECIFIED LAB 62385 PAP SMER 10-21-2009 [facility] CERV W/HI CENTER GRADE PLLC SQUAMOUS INTRAEPITH LES V3001 SINGLE 08-12-2009 [facility] DELIV BY V7219 OTHER 08-12-2009 [facility] EXAMINATION MEDICAL GRP [facility] 57461 SEVERE 08-11-2009 [facility] PRE-ECLAMPS CENTER IA, PLLC ANTEPARTUM 65790 FAILED 08-11-2009 [facility] MECHANICAL CENTER INDUCTION PLLC OF LABOR DELIVERED 75960 PRIMARY 08-11-2009 EP[facility] UTERINE ANESTHESIA INERTIA [facility] WITH DELIVERY 80020 SECONDARY 08-11-2009 [facility] UTERINE CENTER INERTIA PLLC WITH DELIVERY 07689 MILD OR 08-10-2009 [facility] UNSPECIFIED EPISCOPAL HOSP PRE-ECLAMPS IA WITH DELIVERY 47035 OLIGOHYDRAM 08-10-2009 [facility] NIOS, EPISCOPAL DELIVERED HOSP 91122 OLIGOHYDRAM 08-10-2009 [facility], DIAGNOSTICC ANTEPARTUM ENTER 01173 BREECH/MALP 07-27-2009 [facility] RESENT [place] CONVERTED PLLC TO CEPHALIC-AP C/C 48857 EXCESS 07-27-2009 [facility] CENTER GROWTH PLLC AFFECT MGMT MOTH ANTPRTM V220 SUPERVISION 05-27-2009 [facility] OF NORMAL EPISCOPAL FIRST HOSP 48020 UNSPEC 02-23-2009 [facility] HEMORRHAGE CENTER EARLY PLLC ANTEPARTUM Medications [...] ve SS 24 20 20 CA 7 MAKEZNIE A 72 10 10 RE HN 28 8 PH TA AR BL MA ET CY # 2 AL 00 04 04 0 10 [address] TO [address] 78 -0 -0 0. TA 77 CO [...] 25 DA 0 MG TA BL ET Procedures Procedure DOS Code Location Performer Comment CYTP C/V 16204 [facility], P[facility]LES[facility] AUTO THIN 6 LLC [...] FLEMIN ACETONIDE NOS 10 MG CYTP C/V 85819 PICKLESIM PICKLESIM AUTO THIN 3 ER JR ARLIN ER JR ARLIN LYR PREPJ SCR MNL RESCR PHYS ANESTHESI 27696 JOSE DE JESUS SANTANA A 3 DELIVERY ONLY 24363 LOOFF ELIGIO LOOFF ELIGIO DELIVERY 3 ATTEMPTED LOW 741 [facility] CERVICAL 3 EPISCOPAL EPISCOPAL HOSP HOSP SECTION IADNA 31758 MEDICAL MEDICAL STREPTOCO 3 DIAGNOSTI DIAGNOSTI CCUS C LAB LLC C LAB CareLuLu GROUP B AMPLIF[place] US PREG 20992 HUY BALL UTERUS 3 AFTER 1ST TRIMEST / GESTATION US PREG 82538 HUY SON QUINN UTERUS 3 REAL TIME W/IMAGE DCMTN TRANSVAG COLLECTIO 17350 [facility] N VENOUS 3 EPISCOPAL EPISCOPAL BLOOD HOSP HOSP VENIPUNCT URE GLUCOSE 45239 [facility] POST 3 EPISCOPAL [place] [address] WOMENKamini HANSEN 3 CARE UTERUS CENTER LIMITED PLLC 1/> [place]USES [place] PREG 31767 LUDIN DEL VALLE UTERUS 3 CARE REAL TIME CENTER W/IMAGE PLLC DCMTN TRANSVAG US PREG 62864 ARMANI ALLENDLER UTERUS 3 WOMENS MARRERO REAL TIME HEALTH W/IMAGE PLLC DCMTN TRANSVAG IADNA 25633 MEDICAL MEDICAL CHLAMYDIA 3 DIAGNOSTI DIAGNOSTI C LAB LLC C LAB LLC TRACHOMAT IS AMPLIFIED PROBE TQ IADNA 57586 MEDICAL MEDICAL NEISSERIA 3 DIAGNOSTI DIAGNOSTI C LAB LLC C LAB LLC GONORRHOE AE AMPLIFIED PROBE TQ GONADOTRO 52919 [facility] ROBBINS PIN 2 [facility] QUANTITAT SINDY GONADOTRO 57273 ROSEND[facility] ROBBINS PIN 2 [facility] QUALITATI VE CYTP C/V 08480 PATHOLOGY PICKLESIM AUTO THIN 2 & ER JR ARLIN LYR CYTOLOGY PREPJ SCR LAB MNL RESCR PHYS CYTP 87341 PATHOLOGY PATHOLOGY CERVICAL/ 1 & & VAGINAL CYTOLOGY CYTOLOGY REQ LAB LAB INTERP PHYSICIAN CYTP C/V 51263 PATHOLOGY PATHOLOGY AUTO THIN 1 & & LYR CYTOLOGY CYTOLOGY PREPJ SCR LAB LAB MNL RESCR PHYS COLLECTIO 02836 ROSENDO ROBBINS N VENOUS [address] [facility] VENIPUNCT URE PRESCRIPT J8499 ROBBINSMONI ROBBINS ION DRUG 0 CO [facility] NONCHEMOT HERAPEUTI C NOS INJECTION J2405 ROSENDO ROBBINS 0 CO [facility] ON HCL PER 1 MG BLOOD 84097 ROBBINSMONI ROBBINS COUNT 0 CO [facility] AUTO&AUTO DIFRNTL WBC THERAPEUT 85683 [facility] ROBBINS IC 0 [facility] TIC/DX INJECTION SUBQ/IM INJECTION J0500 ROSENDO ROBBINS 0 CO [facility] DICYCLOMI [facility] NE HCL UP TO 20 MG COLPOSCOP 90049 WOMENS LOOFF, Y CERVIX 0 CARE [facility] CERVIX [place] & [place] [address] PATHOLOGY PATHOLOGY SURG 0 & & PATHOLOGY CYTOLOGY CYTOLOGY LAB LAB GROSS&JEREL ROSCOPIC EXAM AUDITORY 30932 PEDIATRIX KURT, EVOKED 9 MEDICAL NATALIE G [facility] [place] S LIMITED PSC NEURAXIAL 92514 EPISCOPAL JOZEF LABOR 9 ANESTHESI III, ANALG/ANE A PSC GRADY S PLND VAGINAL DELIVERY ANES 43256 EPISCOPAL WHITE CESARN 9 ANESTHESI III, DLVR FLWG A PSC GRADY NEURAXIAL LABOR ANALG/ANE S 40568 WOMENS LOOFF, DELIVERY 9 CARE [facility] W/POSTPAR PLLC JAELYN CARE OTHER 7309 [facility]TRAL ARTIFICIA 9 EPISCOPAL EPISCOPAL L RUPTURE HOSP [facility] LOW 741 [facility] CERVICAL 9 EPISCOPAL EPISCOPAL HOSP HOSP SECTION MEDICAL 734 [facility] INDUCTION 9 EPISCOPAL [place]ISCOP[place] [address]8768 [place], UTERUS 9 KATIA R W/DETAIL DIAGNOSTI CCENTER LIS 1ST GESTATION 19021 [place], BIOPHYSIC 9 KATIA R AL DIAGNOSTI PROFILE CCENTER W/O NON-STRES S TESTING 03612 WOMENKamini LYNNE BIOPHYSIC 9 [facility] PROFILE PLLC W/O NON-STRES S TESTING IADNA 00999 MEDICAL MEDICAL STREPTOCO 9 DIAGNOSTI DIAGNOSTI CCUS C LAB LLC C LAB [place] [address] WOMENKamini LYNNE BIOPHYS 9 [facility] PROFILE PLLC W/O NON-STRES S TESTING IAADIADOO 38555 FAMILY NAVARRO 9 MEDICINE , RSAHAAD [facility] COLLECTIO 52482 [facility]AL N VENOUS 9 EPISCOPAL EPISCOPAL BLOOD HOSP HOSP VENIPUNCT URE GLUCOSE 86331 [facility] POST 9 EPISCOPAL [place] [address] LUDIN CARD, 9 CARE ELIJAH I UTERUS CENTER LIMITED PLLC 1/> [place] P[place] 47523 LUDIN CARD, UTERUS 9 CARE ELIJAH I AFTER 1ST CENTER TRIMEST PLLC / GESTATION 3D 26088 LUDIN CARD, RENDERING 9 [facility] CENTER W/INTERP& PLLC POSTPROC [place] 15751 WOMENKamini LYNNE, UTERUS 9 [facility] REAL TIME [place] W/IMAGE PLLC DCMTN TRANSVAG COLLECTIO 82452 ROSENDO ROBBINS N VENOUS 9 [facility] VENIPUNCT URE GONADOTRO 11395 ROSENDO ROBBNIS PIN 9 [facility] QUALITATI VE Encounters Encounter Start End Date Code Location Performer Type Date PERIODIC 79933 EPISCOPAL [facility] 6 6 HEALTH E MED EST MEDICAL PATIENT GROUP 18-39 YRS OFFICE 44601 FAMILY BRICEÑO OUTPATIEN 6 6 MEDICINE AMA T VISIT ASSOC 25 FLEMIN MINUTES OFFICE 83608 FAMILY MELANY MANDEL OUTPATIEN 5 5 MEDICINE T VISIT ASSOC 15 FLEMIN MINUTES HOSPITAL [facility]AL - 3 3 EPISCOPAL INPATIENT HOSP OFFICE 62666 LOOFF ELIGIO LOOFF ELIGIO OUTPATIEN 3 3 T VISIT 15 MINUTES OFFICE 81321 LOOFF ELIGIO LOOFF ELIGIO OUTPATIEN 3 3 T VISIT 15 MINUTES OFFICE 00588 LOOFF ELIGIO LOOFF ELIGIO OUTPATIEN 3 3 T VISIT 15 MINUTES OFFICE 61629 LOOFF ELIGIO LOOFF ELIGIO OUTPATIEN 3 3 T VISIT 15 MINUTES OFFICE 54167 WOMEN'S LOOFF ELIGIO OUTPATIEN 3 3 CARE T VISIT CENTER 15 PLLC MINUTES OFFICE 88911 WOMEN'S LOOFF ELIGIO OUTPATIEN 3 3 CARE T VISIT CENTER 15 PLLC MINUTES OFFICE 77646 WOMENS LOOFF ELIGIO OUTPATIEN 3 3 CARE T VISIT CENTER 15 PLLC MINUTES OFFICE 42453 WOMENS LOOFF ELIGIO OUTPATIEN 3 3 CARE T VISIT CENTER 15 PLLC MINUTES OFFICE 60961 WOMENS LOOFF ELIGIO OUTPATIEN 3 3 CARE T VISIT CENTER 15 PLLC MINUTES OFFICE 99095 WOMENS LOOFF ELIGIO OUTPATIEN 3 3 CARE T VISIT CENTER 15 PLLC MINUTES HOSPITAL [facility] 63689 WOMENS LOOFF ELIGIO OUTPATIEN 3 3 CARE T VISIT CENTER 15 PLLC MINUTES OFFICE 68349 WOMENS LOOFF ELIGIO OUTPATIEN 3 3 CARE T VISIT CENTER 15 PLLC MINUTES OFFICE 55438 WOMENS LOOFF ELIGIO OUTPATIEN 3 3 CARE T VISIT CENTER 25 PLLC MINUTES OFFICE 60912 ARMANI KENT OUTPATIEN 3 3 WOMENS MARRERO T NEW 30 HEALTH MINUTES [facility] ROBBINS - 2 2 CO [facility] OFFICE 49401 FAMILY MOSLEY TEQUILA OUTPATIEN 2 2 MEDICINE T VISIT ASSOC 15 FLEMIN MINUTES OFFICE 23419 FAMILY DAVID BELTRÁN OUTPATIEN 2 2 MEDICINE T VISIT ASSOC 25 FLEMIN MINUTES PERIODIC 39588 WOMENS LOOFF ELIGIO PREVENTIV 2 2 CARE E MED EST CENTER PATIENT [facility] 18-39 YRS OFFICE 48420 MELANY CURRYON TEQUILA OUTPATIEN 2 2 T VISIT 25 MINUTES OFFICE 80049 FAMILY DILEEP COHEN OUTPATIEN 1 1 MEDICINE T VISIT ASSOC 15 FLEMIN MINUTES PERIODIC 63299 WOMENS LOOFF ELIGIO PREVENTIV 1 1 CARE E MED EST CENTER PATIENT [facility] 18-39 YRS OFFICE 74151 FAMILY MOSLEY, OUTPATIEN 0 0 MEDICINE GRADY G T VISIT ASSOC 15 FLEMINGSB MINUTES EMERGENCY 71040 ROBBINS 0 0 CO [facility] T VISIT [facility] ROBBINS - 0 0 [facility] CENTRAL - 9 9 EPISCOPAL INPATIENT HOSP OFFICE 71436 WOMENS LOOFF, OUTPATIEN 9 9 CARE KATIA T VISIT CENTER 15 PLL MINUTES OFFICE 69637 WOMENS LOOFF, OUTPATIEN 9 9 CARE [facility] T VISIT CENTER 15 PLLC MINUTES OFFICE 38424 WOMENS LOOFF, OUTPATIEN 9 9 CARE [facility] T VISIT CENTER 15 PLL MINUTES OFFICE 70098 FAMILY NAVARRO OUTPATIEN 9 9 MEDICINE , RASHAAD T VISIT ASSOC 15 [facility] - 9 9 EPISCOPAL [facility] OFFICE 22258 WOMENS LOOFF, OUTPATIEN 9 9 CARE [facility] VISIT CENTER 15 [facility] OFFICE 11307 WOMENS LOOFF, OUTPATIEN 9 9 CARE [facility] 15 [facility] OFFICE 69858 WOMENS LOOFF, OUTPATIEN 9 9 CARE [facility] T VISIT CENTER 15 [facility] OFFICE 72437 WOMENS LOOFF, OUTPATIEN 9 9 CARE [facility] 15 [facility] [place] - 9 [facility]
--- OUTSIDE RECORDS SUMMARY | 2017-06-29 08:19 | External Medical Summary Rpt | CCD ---
Author Author , JUSTYN WOODYERMELINDA Address Unknown Phone [email or web address] Care Team Providers Care Family Caseworker Name Role Phone NAVARRO AMA, Unavailable Unavailable NAVARRO AMA NAVARRO, RASHAAD, Unavailable Unavailable NAVARRO, RASHAAD MOSLEY TEQUILA, MOSLEY TEQUILA Unavailable Unavailable MOSLEY TEQUILA, MOSLEY TEQUILA Unavailable Unavailable GRADY MOSLEY G, Unavailable Unavailable GRADY MOSLEY JOHN R, Unavailable Unavailable KATIA STANFORD JEREL, DAVID JEREL Unavailable Unavailable BRIZENDINE, JEAN T, Unavailable Unavailable BRIZENDINE, JEAN T [facility], Unavailable Unavailable [facility] HUY QUINN, HUY QUINN Unavailable Unavailable HUY BHAT QUINN Unavailable Unavailable [facility] Unavailable Unavailable [facility], Unavailable Unavailable [facility] FALK BRA, FALK BRA Unavailable Unavailable DELA CRUZ ESTHER, DELA CRUZ ESTHER Unavailable Unavailable [facility] Unavailable Unavailable [facility] LOOFF ELIGIO, LOOFF ELIGIO Unavailable Unavailable LOOFF ELIGIO, LOOFF ELIGIO Unavailable Unavailable KATIA LYNNE LOOFF, Unavailable Unavailable [facility] Unavailable Unavailable LAB [facility], [facility]IC [facility] STEPHIE NELSON GLE Unavailable Unavailable ELIJAH CARD I, Unavailable Unavailable ELIJAH CARD MAHESH G, NAIK, Unavailable Unavailable NATALIE Young [facility], [facility], [facility] Unavailable Unavailable LABS, [facility] PATHOLOGY & CYTOLOGY Unavailable Unavailable LAB, PATHOLOGY & [facility]TOLOGY LAB PICKLESIMER JR ARLIN, Unavailable Unavailable [facility] JR ARLIN PICKLESIMER JR ARLIN, Unavailable Unavailable [facility] A[facility] Unavailable Unavailable [facility], Unavailable Unavailable [facility]ADL[facility] MARR[facility] # Unavailable Unavailable 2, [facility] # 2 GRADY HASKINS III, Unavailable Unavailable GRADY HASKINS III [facility] Unavailable Unavailable [facility] Purpose Continuity of Care Document - 01-08-2009 through 2016 Problems Code Diagnosis DOS Provider Status [id number] ENCOUNTER 06-22-2016 [facility] GENERAL RTN W/O ABNORMAL FIND [...] ASSOC ADULT FLEMIN V242 ROUTINE 06-12-2013 [facility] FOLLOW-UP 57488 PREV C/S 04-18-2013 LOOFF ELIGIO DELIV DELIV W/WO MENTION ANTPRTM COND V270 OUTCOME OF 04-18-2013 [facility] DELIVERY [facility] V221 SUPERVISION 04-17-2013 ANILOFF ELIGIO OF OTHER NORMAL 12690 OT 01-16-2013 HUY BALL KNOWN/SUSPE CTED ABNORMALITY -NEC-APC/C V2389 SUPERVISION 01-16-2013 HUY BALL OF OTHER HIGH-RISK V8909 OT 01-16-2013 HUY BALL SUSPECTED MATERNAL & COND NOT FOUND 47410 UTERINE 10-08-2012 [facility] DATE CENTER DISCREPANCY PLLC ANTPRTM COND/COMPL V222 09-18-2012 [facility], DIAGNOSTIC INCIDENTAL [facility] V283 ENCOUNTER 09-18-2012 [facility] ROUTINE [facility] MALFORMATIO N ULTRASONIC V284 09-18-2012 [facility] SCR [facility] RETARDATION USING US V7242 09-18-2012 [facility] EXAMINATION WOMENS OR TEST [facility] POSITIVE RESULT 6260 ABSENCE OF 08-22-2012 [facility] N V4989 OTHER SPEC 08-22-2012 FAMILY CONDITIONS MEDICINE INFLUENCING ASSOC HEALTH FLEMIN STATUS V8523 BODY MASS 08-22-2012 FAMILY INDEX MEDICINE 27.0-27.9 ASSOC ADULT FLEMIN 462 ACUTE 07-08-2012 [facility] PHARYNGITIS [facility] FLEMIN 4739 UNSPECIFIED 07-08-2012 [facility] SINUSITIS MEDICINE ASSOC FLEMIN V7231 ROUTINE 12-20-2011 [facility] GYNECOLOGIC CENTER AL PLLC EXAMINATION 5110 PLEURISY 09-27-2011 MOSLEY TEQUILA WITHOUT MENTION EFFUS/CURRE NT TB 7831 ABNORMAL 04-07-2010 [facility]IN [facility] MATTB 5589 OTH&UNSPEC 02-03-2010 [facility] NONINFECTIO HOSP US GASTROENTER ITIS&COLITI S 93718 DYSPLASIA 10-21-2009 PATHOLOGY & OF CERVIX CYTOLOGY UNSPECIFIED LAB 36912 PAP SMER 10-21-2009 [facility] CERV W/HI CENTER GRADE PLLC SQUAMOUS INTRAEPITH LES V3001 SINGLE 08-12-2009 [facility] DELIV BY V7219 OTHER 08-12-2009 [facility] EXAMINATION MEDICAL GRP OF [facility] 46489 SEVERE 08-11-2009 [facility] PRE-ECLAMPS CENTER IA, PLLC ANTEPARTUM 85119 FAILED 08-11-2009 [facility] MECHANICAL CENTER INDUCTION PLLC OF LABOR DELIVERED 77267 PRIMARY 08-11-2009 [facility] UTERINE ANESTHESIA INERTIA [facility] WITH DELIVERY 88810 SECONDARY 08-11-2009 [facility] UTERINE CENTER INERTIA PLLC WITH DELIVERY 79657 MILD OR 08-10-2009 [facility] UNSPECIFIED [facility] PRE-ECLAMPS IA WITH DELIVERY 30709 OLIGOHYDRAM 08-10-2009 [facility] NIOS, [facility]ICAN DELIVERED HOSP 17773 OLIGOHYDRAM 08-10-2009 [facility], DIAGNOSTICC ANTEPARTUM ENTER 74243 BREECH/MALP 07-27-2009 [facility] RESENT [place] CONVERTED PLLC TO CEPHALIC-AP C/C 45531 EXCESS 07-27-2009 [facility] CENTER GROWTH PLLC AFFECT MGMT MOTH ANTPRTM V220 SUPERVISION 05-27-2009 [facility] OF NORMAL [facility] 46013 UNSPEC 02-23-2009 [facility] HEMORRHAGE CENTER EARLY PLLC ANTEPARTUM [...] 0 10 25 TO 70 BA Ac [place] 78 -0 -0 0. TA 77 CO [...] DOS Code Location Performer Comment CYTP C/V 40450 [facility], P[facility] AUTO THIN 6 LLC [...] FLEMIN ACETONIDE NOS 10 MG CYTP C/V 75445 P[facility] PICKLES[facility] AUTO THIN 3 ER JR ARLIN ER JR ARLIN LYR PREPJ SCR MNL RESCR PHYS ANESTHESI 56614 JOSE DE JESUS SANTANA A 3 DELIVERY ONLY 79185 LOOFF ELIGIO LOOFF ELIGIO DELIVERY 3 ATTEMPTED LOW 741 [facility] CERVICAL 3 [facility] SECTION IADNA 55740 MEDICAL MEDICAL STREPTOCO 3 DIAGNOSTI DIAGNOSTI CCUS C LAB LLC C LAB [employer] GROUP B [place] T[place] P[place] 73171 HUY BALL UTERUS 3 AFTER 1ST TRIMEST / GESTATION US PREG 21476 HUY SON QUINN UTERUS 3 REAL TIME W/IMAGE DCMTN TRANSVAG COLLECTIO 25608 [facility] N VENOUS 3 [facility] HOSP VENIPUNCT URE GLUCOSE 98494 [facility] POST 3 [facility] [address] WOMENKamini HANSEN 3 CARE UTERUS CENTER LIMITED PLLC 1/> FETUSES [place] PREG 32129 LUDIN DEL VALLE UTERUS 3 CARE REAL TIME CENTER W/IMAGE PLLC DCMTN [place]AG [place] PREG 48740 ARMANI ALLENDLER UTERUS 3 WOMENS MARRERO REAL TIME HEALTH W/IMAGE PLLC DCMTN TRANSVAG IADNA 72722 MEDICAL MEDICAL CHLAMYDIA 3 DIAGNOSTI DIAGNOSTI C LAB LLC C LAB LLC TRACHOMAT IS AMPLIFIED PROBE TQ IADNA 58584 MEDICAL MEDICAL NEISSERIA 3 DIAGNOSTI DIAGNOSTI C LAB LLC C LAB LLC GONORRHOE AE AMPLIFIED PROBE TQ GONADOTRO 91757 [facility] ROBBINS PIN 2 CO [facility] QUANTITAT SINDY GONADOTRO 38249 [facility] ROBBINS PIN 2 CO [facility] QUALITATI VE CYTP C/V 49494 PATHOLOGY PICKLESIM AUTO THIN 2 & ER JR ARLIN LYR CYTOLOGY PREPJ SCR LAB MNL RESCR PHYS CYTP 14893 PATHOLOGY PATHOLOGY CERVICAL/ 1 & & VAGINAL CYTOLOGY CYTOLOGY REQ LAB LAB INTERP PHYSICIAN CYTP C/V 08172 PATHOLOGY PATHOLOGY AUTO THIN 1 & & LYR CYTOLOGY CYTOLOGY PREPJ SCR LAB LAB MNL RESCR PHYS COLLECTIO 06156 ROSEND[facility] ROBBINS N VENOUS 0 CO [facility] VENIPUNCT URE PRESCRIPT J8499 ROBBINSMONI ROBBINS ION DRUG 0 CO [facility] NONCHEMOT HERAPEUTI C NOS INJECTION J2405 [facility] ROBBINS 0 CO [facility] ON HCL PER 1 MG BLOOD 64798 ROBBINSMONI ROBBINS COUNT 0 CO [facility] AUTO&AUTO DIFRNTL WBC THERAPEUT 99794 [facility] IC 0 [place] PROPHYLCAPE COD HOSPITAL TIC/DX INJECTION SUBQ/IM INJECTION J0500 [facility] ROBBINS 0 CO [place] DICYCLOMI [facility] NE HCL UP TO 20 MG COLPOSCOP 13581 WOMENS LOOFF, Y CERVIX 0 CARE [facility] CERVIX [place] & [place] [address] PATHOLOGY PATHOLOGY SURG 0 & & PATHOLOGY CYTOLOGY CYTOLOGY LAB LAB GROSS&JEREL ROSCOPIC EXAM AUDITORY 28758 PEDIATRIX KURT, EVOKED 9 MEDICAL NATALIE G POTENTIAL [facility] [place] S LIMITED PSC NEURAXIAL 05745 ANGLICAN JOZEF LABOR 9 ANESTHESI III, ANALG/ANE A PSC GRADY S PLND VAGINAL DELIVERY ANES 92402 ANGLICAN WHITE CESARN 9 ANESTHESI III, DLVR FLWG A PSC GRADY NEURAXIAL LABOR ANALG/ANE S 72346 WOMENS LOOFF, DELIVERY [address] [facility] W/POSTPAR PLLC JAELYN CARE OTHER 7309 [facility] ARTIFICIA 9 ANGLICAN ANGLICAN L RUPTURE HOSP [facility] LOW 741 [facility] CERVICAL 9 [facility] HOSP SECTION MEDICAL 734 [facility] INDUCTION 9 ANGLICAN ANGLICAN [place] [address] [place], UTERUS 9 KATIA R W/DETAIL DIAGNOSTI CCENTER LIS 1ST GESTATION 05022 [place], BIOPHYSIC 9 KATIA R AL DIAGNOSTI PROFILE CCENTER W/O NON-STRES S TESTING 60234 WOMENKamini LYNNE BIOPHYSIC 9 [facility] CENTER PROFILE PLLC W/O NON-STRES S TESTING IADNA 37345 MEDICAL MEDICAL STREPTOCO 9 DIAGNOSTI DIAGNOSTI CCUS C LAB LLC C LAB [place] [address] WOMENKamini LYNNE BIOPHYS 9 [facility] CENTER PROFILE PLLC W/O NON-STRES S TESTING IAADIADOO 63043 FAMILY NAVARRO 9 MEDICINE , RAS[facility]AD [facility] COL[facility] 79676 [facility] N VENOUS 9 [facility] HOSP VENIPUNCT URE GLUCOSE 15117 [facility] POST 9 [facility] [address] LUDIN CARD, 9 CARE ELIJAH I UTERUS CENTER LIMITED PLLC 1/> [place] PREG 62477 LUDIN CARD, UTERUS 9 CARE ELIJAH I AFTER 1ST CENTER TRIMEST PLLC / GESTATION 3D 17156 LUDIN CARD, RENDERING 9 [facility] CENTER W/INTERP& PLLC [place] 52958 WOMENKamini LYNNE, UTERUS 9 [facility] REAL TIME [place] W/IMAGE PLLC DCMTN TRANSVAG COLLECTIO 51902 [facility] ROBBINS N VENOUS 9 [facility] VENIPUNCT URE GONADOTRO 82801 ROS[facility] ROBBINS PIN 9 [facility] QUALITATI VE Encounters Encounter Start End Date Code Location Performer Type Date PERIODIC 12121 ANGLICAN MAGED [facility] 6 6 HEALTH E MED EST MEDICAL PATIENT GROUP 18-39 YRS OFFICE 08285 FAMILY BRICEÑO OUTPATIEN 6 6 MEDICINE AMA T VISIT ASSOC 25 FLEMIN MINUTES OFFICE 80192 FAMILY MELANY MANDEL OUTPATIEN 5 5 MEDICINE T VISIT ASSOC 15 FLEMIN MINUTES HOSPITAL [facility] - 3 3 [facility] INPATIENT HOSP OFFICE 52249 LOOFF ELIGIO LOOFF ELIGIO OUTPATIEN 3 3 T VISIT 15 MINUTES OFFICE 43683 LOOFF ELIGIO LOOFF ELIGIO OUTPATIEN 3 3 T VISIT 15 MINUTES OFFICE 47207 LOOFF ELIGIO LOOFF ELIGIO OUTPATIEN 3 3 T VISIT 15 MINUTES OFFICE 19769 LOOFF ELIGIO LOOFF ELIGIO OUTPATIEN 3 3 T VISIT 15 MINUTES OFFICE 09653 WOMEN'S LOOFF ELIGIO OUTPATIEN 3 3 CARE T VISIT CENTER 15 PLLC MINUTES OFFICE 54703 WOMEN'S LOOFF ELIGIO OUTPATIEN 3 3 CARE T VISIT CENTER 15 PLLC MINUTES OFFICE 92630 WOMENS LOOFF ELIGIO OUTPATIEN 3 3 CARE T VISIT CENTER 15 PLLC MINUTES OFFICE 32329 WOMENS LOOFF ELIGIO OUTPATIEN 3 3 CARE T VISIT CENTER 15 PLLC MINUTES OFFICE 93398 WOMENS LOOFF ELIGIO OUTPATIEN 3 3 CARE T VISIT CENTER 15 PLLC MINUTES OFFICE 64268 WOMENS LOOFF ELIGIO OUTPATIEN 3 3 CARE T VISIT CENTER 15 PLLC MINUTES HOSPITAL [facility] 3 [facility] 66457 WOMENS LOOFF ELIGIO OUTPATIEN 3 3 CARE T VISIT CENTER 15 PLLC MINUTES OFFICE 01433 WOMENS LOOFF ELIGIO OUTPATIEN 3 3 CARE T VISIT CENTER 15 PLLC MINUTES OFFICE 89794 WOMENS LOOFF ELIGIO OUTPATIEN 3 3 CARE T VISIT CENTER 25 PLLC MINUTES OFFICE 48935 ARMANI KENT OUTPATIEN 3 3 WOMENS MARRERO T NEW 30 HEALTH MINUTES [facility] ROBBINS - 2 2 CO [facility] OFFICE 55282 FAMILY MOSLEY TEQUILA OUTPATIEN 2 2 MEDICINE T VISIT ASSOC 15 FLEMIN MINUTES OFFICE 55841 FAMILY DAVID BELTRÁN OUTPATIEN 2 2 MEDICINE T VISIT ASSOC 25 FLEMIN MINUTES PERIODIC 50600 WOMENS LOOFF ELIGIO PREVENTIV 2 2 CARE E MED EST CENTER PATIENT [facility] 18-39 YRS OFFICE 21925 MELANY CURRYON TEQUILA OUTPATIEN 2 2 T VISIT 25 MINUTES OFFICE 07402 FAMILY DILEEP COHEN OUTPATIEN 1 1 MEDICINE T VISIT ASSOC 15 FLEMIN MINUTES PERIODIC 64200 WOMENS LOOFF ELIGIO PREVENTIV 1 1 CARE E MED EST CENTER PATIENT [facility] 18-39 YRS OFFICE 45905 FAMILY MOSLEY, OUTPATIEN 0 0 MEDICINE GRADY G T VISIT ASSOC 15 FLEMINGSB MINUTES EMERGENCY 04628 ROBBINS 0 0 CO [facility] T VISIT [facility] ROBBINS - 0 0 [facility] CENTRAL - 9 9 [facility]ICAN INPATIENT HOSP OFFICE 51059 WOMENS LOOFF, OUTPATIEN 9 9 CARE KATIA T VISIT CENTER 15 PLL MINUTES OFFICE 12506 WOMENS LOOFF, OUTPATIEN 9 9 CARE [facility] T VISIT CENTER 15 PLLC MINUTES OFFICE 44991 WOMENS LOOFF, OUTPATIEN 9 9 CARE [facility] T VISIT CENTER 15 PLL MINUTES OFFICE 87583 FAMILY NAVARRO OUTPATIEN 9 9 MEDICINE , RASHAAD T VISIT ASSOC 15 [facility] - 9 9 [facility]ICAN [facility] OFFICE 23606 WOMENS LOOFF, OUTPATIEN 9 9 CARE [facility] VISIT CENTER 15 [facility] [place] OFFICE 12310 WOMENS LOOFF, OUTPATIEN 9 9 CARE [facility] VISIT CENTER 15 [facility] [place] OFFICE 34492 WOMENS LOOFF, OUTPATIEN 9 9 CARE [facility] T VISIT CENTER 15 [facility] [place] OFFICE 48338 WOMENS LOOFF, OUTPATIEN 9 9 CARE [facility] VISIT CENTER 15 [facility] [place] - 9 [facility]
--- OUTSIDE RECORDS SUMMARY | 2017-06-29 08:20 | External Medical Summary Rpt | CCD ---
Demographics Preferred Language Turkish Marital Status Unknown Temple Affiliation Unknown Race Unknown Ethnic Group Unknown Author Author , JUSTYN ALEJANDRA Address Unknown Phone Immunization No patient found.
--- OUTSIDE RECORDS SUMMARY | 2017-06-29 08:20 | External Medical Summary Rpt ---
Author Author JUSTYN Mack, [employer] Organization [employer] Address Unknown Phone Unavailable Results Urinalysis dipstick W Reflex Microscopic panel in Urine Observa Value Referen Units Interpr Notes Date tion ce etation Range Appeara TURBID CLEAR No No No Jun 22 nce of informa informa informa 2016 Urine tion in tion in tion in 5:15 PM source source source data data data Bacteri 4+ O No No No Jun 22 a informa informa informa 2016 [Presen tion in tion in tion in 5:15 PM ce] in source source source Urine data data data sedimen t by Light microsc opy Bilirub NEGATIV NEG No No No Jun 22 in E informa informa informa 2016 [Presen tion in tion in tion in 5:15 PM ce] in source source source Urine data data data by Test strip Erythro 2+ NEG No Abnorma No Jun 22 cytes informa l informa 2016 [Presen tion in tion in 5:15 PM ce] in source source Urine data data Color YELLOW YELLOW No No No Jun 22 of informa informa informa 2016 Urine tion in tion in tion in 5:15 PM source source source data data data Glucose NEG No No No Jun 22 [Mass/vol informati informati informati 2016 5:15 ume] in on in on in on in PM Urine by source source source Test data data data strip Ketones NEGATIV NEG mg/dL No No Jun 22 E informa informa 2016 [Presen tion in tion in 5:15 PM ce] in source source Urine data data by Automat ed test strip Mucus 2+ NEG No Abnorma No Jun 6 [Presen informa l informa 2016 ce] in tion in tion in 5:15 PM Urine source source sedimen data data t by Light microsc opy Nitrite NEGATIV NEG No No No Jun 22 E informa informa informa 2016 [Presen tion in tion in tion in 5:15 PM ce] in source source source Urine data data data by Test strip pH of 5.0 - 8.5 No Normal No Jun 22 Urine informati informati 2017 5:15 on in on in PM source source data data Protein NEG mg/dL No No Jun 22 [Mass/vol informati informati 2017 5:15 ume] in on in on in PM Urine by source source Automated data data test strip Erythro 3-5 0 rbc/hpf No No Jun 22 cytes informa informa 2016 [Presen tion in tion in 5:15 PM ce] in source source Urine data data sedimen t by Light microsc opy Specific 1.005 - No Normal No Jun 22 gravity 1.030 informati informati 2017 5:15 of Urine on in on in PM source source data data Epithel 20-50 0 - 5 #/hpf No No Jun 22 ial informa informa 2017 cells.s tion in tion in 5:15 PM quamous source source data data [Presen ce] in Urine sedimen t by Microsc opy high power field Urobili 0.2 NEG E.U./dL No No Jun 22 nogen informa informa 2016 [Presen tion in tion in 5:15 PM ce] in source source Urine data data by Test strip Leukocy [5 O wbc/hpf No No Jun 22 mynor wbc/hpf informa informa 2016 [#/volu ; 10 tion in tion in 5:15 PM me] in wbc/hpf source source Urine ] data data Urinalysis dipstick W Reflex Microscopic panel in Urine Observa Value Referen Units Interpr Notes Date tion ce etation Range Appeara TURBID CLEAR No No No Jun 22 nce of informa informa informa 2017 Urine tion in tion in tion in 5:15 PM source source source data data data Bilirub NEGATIV NEG No No No Jun 22 in E informa informa informa 2016 [Presen tion in tion in tion in 5:15 PM ce] in source source source Urine data data data by Test strip Erythro 2+ NEG No Abnorma No Jun 22 cytes informa l informa 2016 [Presen tion in tion in 5:15 PM ce] in source source Urine data data Color YELLOW YELLOW No No No Oct 6 of informa informa informa 2016 Urine tion in tion in tion in 5:15 PM source source source data data data Glucose NEG No No No Jun 6 [Mass/vol informati informati informati 2016 5:15 ume] in on in on in on in PM Urine by source source source Test data data data strip Ketones NEGATIV NEG mg/dL No No Jun 22 E informa informa 2016 [Presen tion in tion in 5:15 PM ce] in source source Urine data data by Automat ed test strip Mucus 2+ NEG No Abnorma No Jun 6 [Presen informa l informa 2016 ce] in tion in tion in 5:15 PM Urine source source sedimen data data t by Light microsc opy Nitrite NEGATIV NEG No No No Jun 22 E informa informa informa 2016 [Presen tion in tion in tion in 5:15 PM ce] in source source source Urine data data data by Test strip pH of 5.0 - 8.5 No Normal No Jun 22 Urine informati informati 2017 5:15 on in on in PM source source data data Protein NEG mg/dL No No Jun 22 [Mass/vol informati informati 2017 5:15 ume] in on in on in PM Urine by source source Automated data data test strip Specific 1.005 - No Normal No Jun 22 gravity 1.030 informati informati 2017 5:15 of Urine on in on in PM source source data data Urobili 0.2 NEG E.U./dL No No Jun 22 nogen informa informa 2016 [Presen tion in tion in 5:15 PM ce] in source source Urine data data by Test strip Choriogonadotropin.beta subunit [Units] in 24 hour Urine Observa Value Referen Units Interpr Notes Date tion ce etation Range Choriogon NEG No No No Jun 6 adotropin informati informati informati 2017 5:15 .beta on in on in on in PM subunit source source source [Units] data data data in 24 hour Urine CBC W Auto Differential panel in Blood Observa Value Referen Units Interpr Notes Date tion ce etation Range Basophils 0 - 0.2 K/MM3 Normal No Jun 22 informati 2016 4:20 [#/volume on in PM ] in source Blood by data Automated count Basophils 0.1 - 2.0 % Normal No Jun 22 informati 2016 4:20 leukocyte on in PM s in source Blood by data Automated count Eosinophi 0.0 - 0.4 K/mm3 High No Jun 6 ls informati 2016 4:20 [#/volume on in PM ] in source Blood by data Automated count Eosinophi 0.1 - % Normal No Jun 22 ls/100 12.0 informati 2016 4:20 leukocyte on in PM s in source Blood by data Automated count Granulocy 1.8 - 7.8 K/mm3 Normal No Jun 6 mynor informati 2016 4:20 [#/volume on in PM ] in source Blood by data Automated count Granulocy 37.0 - % Normal No Jun 22 mynor/100 80.0 informati 2016 4:20 leukocyte on in PM s in source Blood by data Automated count Hematocri 37.0 - % Normal No Jun 22 t [Volume 47.0 informati 2016 4:20 on in PM Fraction] source of Blood data Hemoglobi 12.2 - g/dL Normal No Jun 22 n 16.2 informati 2016 4:20 [Mass/vol on in PM ume] in source Blood data Lymphocyt 0.7 - 4.5 K/mm3 Normal No Jun 22 es informati 2016 4:20 [#/volume on in PM ] in source Unspecifi data ed specimen by Automated count Lymphocyt 10 - 50.0 % Normal No Jun 22 es informati 2016 4:20 [#/volume on in PM ] in source Unspecifi data ed specimen by Automated count Erythrocy 27 - 31.2 pg Normal No Jun 22 te mean informati 2016 4:20 corpuscul on in PM ar source hemoglobi data n [Entitic mass] Erythrocy 31.8 - g/dl Normal No Jun 22 te mean 35.4 informati 2016 4:20 corpuscul on in PM ar source hemoglobi data n concentra tion [Mass/vol ume] by Automated count Erythrocy 82.2 - fl Normal No Jun 22 te mean 97.8 informati 2016 4:20 corpuscul on in PM ar volume source [Entitic data volume] by Automated count Monocytes 0.1 - 1.0 K/mm3 Normal No Jun 6 informati 2016 4:20 [#/volume on in PM ] in source Blood by data Automated count Monocytes 1.7 - 9.3 % Normal No Oct 6 /100 informati 2016 4:20 leukocyte on in PM s in source Blood by data Automated count Platelet 7.4 - fl Normal No Jun 22 mean 10.4 informati 2016 4:20 volume on in PM [Entitic source volume] data in Blood by Automated count Platelets 142 - 424 K/mm3 Normal No Jun 22 inform2016 4:20 [#/volume on in PM ] in source Blood data Erythrocy 4.2 - 5.4 M/mm3 Normal No Jun 22 mynor informati 2016 4:20 [#/volume on in PM ] in source Amniotic data fluid Erythrocy 11.5 - % Normal No Jun 22 te 17.5 informati 2016 4:20 distribut on in PM ion width source [Entitic data volume] by Automated count Leukocyte 4.8 - K/MM3 Normal No Jun 22 s 10.8 informati 2016 4:20 [#/volume on in PM ] in source Blood data Amylase [Enzymatic activity/volume] in Serum or Plasma Observa Value Referen Units Interpr Notes Date tion ce etation Range Amylase 25 - 115 U/L Normal No Jun 22 [Enzymati informati 2016 4:20 c on in PM activity/ source volume] data in Serum or Plasma Lipase [Enzymatic activity/volume] in Serum or Plasma Observa Value Referen Units Interpr Notes Date tion ce etation Range Lipase 73 - 393 U/L Normal No Jun 22 [Enzymati informati 2016 4:20 c on in PM activity/ source volume] data in Serum or Plasma Comprehensive metabolic 2000 panel in Serum or Plasma Observa Value Referen Units Interpr Notes Date tion ce etation Range Albumin/G 1.1 - 1.8 No Normal No Jun 22 lobulin informati informati 2016 4:20 [Mass on in on in PM ratio] in source source Serum or data data Plasma Albumin 3.4 - 5.0 gm/dL Normal No Jun 22 [Mass/vol informati 2016 4:20 ume] in on in PM Serum or source Plasma data Alkaline 46 - 116 U/L Normal No Jun 22 phosphata informati 2016 4:20 se on in PM [Enzymati source c data activity/ volume] in Serum or Plasma Bilirubin 0.2 - 1.0 mg/dL Normal No Jun 22 .total informati 2016 4:20 [Mass/vol on in PM ume] in source Serum or data Plasma Urea 7 - 18 mg/dL Normal No Jun 6 nitrogen informati 2016 4:20 [Mass/vol on in PM ume] in source Serum or data Plasma Calcium 8.5 - mg/dL Normal No Oct 6 [Mass/vol 10.1 informati 2016 4:20 ume] in on in PM Serum or source Plasma data Chloride 98 - 107 mmoL/L Normal No Oct 6 [Moles/vo informati 2016 4:20 lume] in on in PM Serum or source Plasma data Carbon 21.0 - mmoL/L Normal No Oct 6 dioxide, 32.0 informati 2017 4:20 total on in PM [Moles/vo source lume] in data Serum or Plasma Creatinin 0.55 - mg/dL Normal No Oct 6 e 1.02 informati 2016 4:20 [Mass/vol on in PM ume] in source Serum or data Plasma Creatinin 50 - 200 ML/MIN Normal No Oct 6 e renal informati 2016 4:20 clearance on in PM source predicted data by Cockcroft -Gault formula Estimated 59- ML/MIN No REFERENCE Oct 6 informati RANGE: 2017 4:20 glomerula on in >60 PM r source ML/MIN/1. filtratio data 73 SQUARE n rate METERSIf (GF this patient is -A merican, then multiply theresult by 1.210. Globulin 1.3 - 3.2 gm/dL High No Oct 6 [Mass/vol informati 2016 4:20 ume] in on in PM Serum source data Glucose 74 - 106 mg/dL Normal No Oct 6 [Mass/vol informati 2016 4:20 ume] in on in PM Serum or source Plasma data Potassium 3.5 - 5.1 mmoL/L Normal PLEASE Oct 6 NOTE 2016 4:20 [Moles/vo HEMOLYSIS PM lume] in MAY Serum or SLIGHTLY Plasma ELEVATE K RESULTS Sodium 136 - 145 mmoL/L Normal No Oct 6 [Moles/vo informati 2017 4:20 lume] in on in PM Serum or source Plasma data Aspartate 15 - 37 U/L Low PLEASE Jun 22 NOTE 22016 4:20 aminotran HEMOLYSIS PM sferase MAY [Enzymati SLIGHTLY c ELEVATED activity/ AST volume] RESULT in Serum or Plasma Alanine 12 - 78 U/L Normal No Oct 6 aminotran informati 2017 4:20 sferase on in PM [Enzymati source c data activity/ volume] in Serum or Plasma Protein 6.4 - 8.2 gm/dL Normal No Jun 6 [Mass/vol informati 2017 4:20 ume] in on in PM Serum or source Plasma data Choriogonadotropin [Units/volume] in Serum or Plasma Observa Value Referen Units Interpr Notes Date tion ce etation Range Choriog 3270 Units: IU/ml No No Dec 6 onadotr mIU/ml informa informa 2012 opin tion in tion in 5:13 PM [Units/ source source volume] data data in Serum or Plasma HCG No No No No Dec 6 levels informa informa informa informa 2012 with tion in tion in tion in tion in 5:13 PM Gestati source source source source onal data data data data Age* Gestati No No No No Aug 6 onal informa informa informa informa 2012 Age tion in tion in tion in tion in 5:13 PM source source source source hCG data data data data mIU/mL 0.2-1 No No No No Dec 6 week informa informa informa informa 2012 tion in tion in tion in tion in 5:13 PM source source source source 5-50 data data data data 1-2 No No No No Dec 6 weeks informa informa informa informa 2012 tion in tion in tion in tion in 5:13 PM source source source source 50-500 data data data data 2-3 No No No No Dec 6 weeks informa informa informa informa 2012 tion in tion in tion in tion in 5:13 PM source source source source 100-5,0 data data data data 00 3-4 No No No No Dec 6 weeks informa informa informa informa 2012 tion in tion in tion in tion in 5:13 PM source source source source 500-10, data data data data 000 4-5 No No No No Dec 6 weeks informa informa informa informa 2012 tion in tion in tion in tion in 5:13 PM source source source source 1,000-5 data data data data 0,000 5-6 No No No No Dec 6 weeks informa informa informa informa 2012 tion in tion in tion in tion in 5:13 PM source source source source 10,000- data data data data 100,000 6-8 No No No No Aug 6 weeks informa informa informa informa 2012 tion in tion in tion in tion in 5:13 PM source source source source 15,000- data data data data 200,000 2-3 No No No No Dec 6 months informa informa informa informa 2012 tion in tion in tion in tion in 5:13 PM source source source source 10,000- data data data data 100,000 *Baez No No No No Aug 22 [place], informa informa informa informa 2012 Arnulfo tion in tion in tion in tion in 5:13 PM AJ, source source source source Clinica data data 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 data data data data 1996;81 6-817 Choriogonadotropin.beta subunit ( test) [Presence] in Serum or Plasma Observa Value Referen Units Interpr Notes Date tion ce etation Range BETA POSITIV NL: ATIVE No No Aug 22 HCG (S) E NEGATIV informa informa 2012 E tion in tion in 4:37 PM source source data data NOTE: No No No No Aug 22 A serum informa informa informa informa 2012 test tion in tion in tion in tion in 4:37 PM result source source source source of data data data data Positiv e, <25 mIU/ml is not a definit ole diagnos No No No No Aug 22 is of informa informa informa informa 2012 pregnan tion in tion in tion in tion in 4:37 PM cy. source source source source After data data data data 48 hours, another specime n may need to No No No No Aug 22 be informa informa informa informa 2012 obtaine tion in tion in tion in tion in 4:37 PM d and source source source source tested. data data data data If waiting 48 hours is not medical No No No No Aug 22 ly informa informa informa informa 2012 advisab tion in tion in tion in in 4:37 PM le, the source source source source test data data data data should be confirm ed by a quantit ative HCG. No No No No Aug 22 informa informa informa informa 2012 tion in tion in tion in ti in 4:37 PM source source source source data data data data
--- OUTSIDE RECORDS SUMMARY | 2017-06-29 08:20 | External Medical Summary Rpt | CCD ---
Demographics Preferred Language Armenian Marital Status Unknown Evangel[employer] Affiliation Unknown Race Unknown Ethnic Group Unknown Author Author , JUSTYN ALEJANDRA Address Unknown Phone Immunization No patient found.
--- OUTSIDE RECORDS SUMMARY | 2017-06-29 08:20 | External Medical Summary Rpt ---
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
== END 2017-06-22 19:28 | disposition home or self-care (01) ==
LOC: ER 15:56
PROVIDERS: Emergency Medicine
DX: R10.33 Periumbilical pain (principal); R11.2 Nausea with vomiting, unspecified